=== PATIENT | male | born 1945 | race Caucasian/White ===

== ENCOUNTER 2019-04-02 14:03 | Inpatient (IN) ==
[2019-04-02] MEDS ORDERED: ULTRAM PO PRN (16:00)
[2019-04-02] MEDS: LEVAQUIN 750 MG/D5W 750 MG/150 ML IVPB IV SCH (16:22)
[2019-04-02 16:30] LABS: BASO# 0.04 X1000 (0.0-0.2); BASO% 0.6 % (0.0-0.8); EOS# 0.26 X1000 (0.0-0.7); EOS% 3.9 % (0.0-10.0); HEMATOCRIT 31.9 % (42.0-52.0); HEMOGLOBIN 10.3 g/dL (14.0-18.0); LYMPH# 1.33 X1000 (1.2-3.4); LYMPH% 19.9 % (20.5-51.1); MCH 35.5 PG (27-31); MCHC 32.3 g/dL (33-37); MONO# 0.58 X1000 (0.11-0.59); MONO% 8.7 % (1.7-9.3); MPV 9.6 FL (7.4-10.4); NEUT# 4.48 X1000 (1.4-6.5); NEUT% 66.9 % (42.2-75.2); PLT 118 X1000 (130-400); RDW 14.9 % (11.5-14.5); WBC 6.69 X1000 (4.8-10.8)
[2019-04-02 16:32] LABS: ALLEN TEST YES; BE -1.2 mmoll (-3.0-3.0); BLOOD TYPE ARTERIAL; METHB 0.9 % (0.0-1.5); O2(CT) 14.4 mL/dL (15.0-23.0); O2HB 96.4 % (95.0-99.0); PCO2(98.6) 32 mmHg (35-45); PO2(98.6) 103 mmHg (60-100); SAMPLE BLOOD; SAO2 98.8 % (95.0-100.0); THB 10.5 g/dL (11.5-17.4); pH(98.6) 7.45 (7.35-7.45)
--- NOTE | 2019-04-02 16:32 | EKG Report ---
Test Performed on : 04/02/2019 4:26:16 PM Test Reason : CELLULITIS BOTH LEGS Blood Pressure : / mmHG Vent. Rate : 102 BPM Atrial Rate : 102 BPM P-R Int : 196 ms QRS Dur : 084 ms QT Int : 360 ms P-R-T Axes : 050 062 061 degrees QTc Int : 469 ms Sinus tachycardia. with frequent premature ventricular complexes. Cannot rule out Inferior infarct , age undetermined Abnormal ECG When compared with ECG of 03-SEP-2018 18:56, premature ventricular complexes. are now present ST no longer elevated in Inferior leads ST no longer elevated in Lateral leads Nonspecific T wave abnormality, worse in Inferior leads Confirmed by Rachel DILLARD, Lorenzo Vang ([id number]) on 04/02/2019 7:30:30 PM
[2019-04-02 16:33] LABS: MODALITY ROOM AIR
[2019-04-02 16:34] LABS: INR 1.44; PROTIME 18.7 Seconds (11.0-16.0)
[2019-04-02 16:48] LABS: ALB/GLOB RATIO 1.4; ALBUMIN 3.9 g/dL (3.5-5.0); CALCIUM 9.6 mg/dL (8.8-10.2); POTASSIUM 4.7 mmol/L (3.5-5.1); TOTAL BILIRUBIN 0.62 mg/dL (0.20-1.00); TOTAL PROTEIN 6.6 g/dL (6.3-8.3)
[2019-04-02 16:56] LABS: EOS 2 % (1-10); LYMPHS 17 % (21-51); MONO 4 % (1-9); SEGS 74 % (42-75)
[2019-04-02 17:58] LABS: URINE SOURCE CLEAN CATCH
[2019-04-02 18:07] LABS: BILIRUBIN URINE NEGATIVE (NEGATIVE); BLOOD URINE SMALL (NEGATIVE); COLOR YELLOW; GLUCOSE URINE 200 mg/dL (NEGATIVE); KETONE URINE NEGATIVE (NEGATIVE); LEUKOCYTES URINE NEGATIVE (NEGATIVE); NITRITE URINE NEGATIVE (NEGATIVE); PROTEIN URINE NEGATIVE (NEGATIVE); SP GRAVITY URINE 1.006; TURBIDITY URINE CLEAR (CLEAR); UR EPITHELIAL CELLS <10 /HPF (<10); URINE BACTERIA NEGATIVE /HPF; URINE WBC <10 /HPF (<10); UROBILINOGEN URINE NORMAL (NORMAL)
[2019-04-02] MEDS: ROCEPHIN 1 GM in NS 50 ML IV SCH (18:41)
[2019-04-02] MEDS: LASIX IV SCH (18:41)
--- NOTE | 2019-04-02 18:42 | Diag Imaging Result Doc PS360 ---
EXAM: CHEST-2 VIEWS HISTORY: CELLULITIS BOTH LEGS TECHNIQUE: Chest two views COMPARISON: 09/09/2018 FINDINGS: The lungs are well expanded. The heart is not enlarged. The vessels are not distended. There are no infiltrates. No pleural effusions. IMPRESSION: No pneumonia Electronically signed by Pascual Finney 04/02/2019 6:39 PM
[2019-04-02] MEDS: ALDACTAZIDE 25/25 PO SCH (22:58)
[2019-04-02] MEDS: REQUIP PO SCH (22:58)
[2019-04-02] MEDS: XANAX PO SCH (22:58)
[2019-04-02] MEDS: ELIQUIS PO SCH (22:59)
[2019-04-02] MEDS: REMERON PO SCH (22:59)
[2019-04-02] MEDS: NORCO-7.5 PO SCH (22:59)
[2019-04-03] MEDS: LASIX IV SCH ×2 (05:32→17:48)
[2019-04-03] MEDS: PRILOSEC PO SCH ×2 (05:32→06:29)
[2019-04-03] MEDS: NORCO-7.5 PO SCH ×4 (05:32→23:36)
[2019-04-03] MEDS: ROCEPHIN 1 GM in NS 50 ML IV SCH ×2 (05:32→17:48)
[2019-04-03] MEDS: LEXAPRO PO SCH ×2 (07:57→17:18)
[2019-04-03] MEDS: ZYLOPRIM PO SCH ×2 (07:57→17:18)
[2019-04-03] MEDS: FLOMAX PO SCH ×2 (07:57→17:19)
[2019-04-03] MEDS: ALDACTAZIDE 25/25 PO SCH ×3 (07:58→21:14)
[2019-04-03] MEDS: ELIQUIS PO SCH ×3 (07:58→21:14)
[2019-04-03] MEDS ORDERED: FLOMAX PO PRN (08:12)
[2019-04-03] MEDS ORDERED: ULTRAM PO PRN (08:12)
[2019-04-03] MEDS ORDERED: NON-FORMULARY MED (Omeprazole 40 MG) PO SCH (09:00)
[2019-04-03] MEDS ORDERED: ALDACTONE PO SCH (09:00)
[2019-04-03] MEDS ORDERED: LEXAPRO PO SCH (09:00)
[2019-04-03] MEDS ORDERED: ELIQUIS PO SCH (09:00)
[2019-04-03] MEDS ORDERED: NORCO-7.5 PO SCH (09:00)
[2019-04-03] MEDS ORDERED: ZYLOPRIM PO SCH (09:00)
--- NOTE | 2019-04-03 11:07 | HISTORY AND PHYSICAL ---
HISTORY OF PRESENT ILLNESS: Mr. Merchant is a 73-year-old white gentleman who comes to the office with mild swelling of both legs, more on the left side, with severe cellulitis. He has been having swelling off and on of both legs. It is getting worse, and he had significant cellulitis with infection in both legs, more on the left side. Hence, he was admitted. He has not responded to outpatient therapy. Mr. Merchant has a history of DVT in the left thigh, and since then, he has swelling of the left leg. This happened about 8 years ago. At that time, he had inferior vena cava umbrella filter placed in because he had pulmonary embolism right after the DVT attack. He is a known case of hypertension, maturity-onset diabetes, multiple kidney stones, severe degenerative disk disease, anxiety with depression. For his kidney stones, he usually sees the urologist in [place]. The only surgery he had was surgeries for kidney stones, and inferior vena cava umbrella placed in. REVIEW OF SYSTEMS: Otherwise noncontributory. PHYSICAL EXAMINATION: GENERAL: The patient is alert, oriented. VITAL SIGNS: Temperature normal, pulse 86 per minute, respiratory rate 16 per minute, blood pressure was 120/84. HEENT: Head normocephalic. Pupils PERRLA. Fundus examination not done. ENT examination unremarkable. NECK: Supple. JVP normal. There is no evidence of lymphadenopathy, thyroid enlargement, anemia, cyanosis, or clubbing. EXTREMITIES: He has bilateral leg edema, more on the left side, pitting on pressure, stage IV, and has cellulitis with inflammation of the skin, which is red, hot, tender, more on the left side. Pulses are feeble. BREAST: Normal. CHEST: Normal to inspection. LUNGS: Clear to auscultation. HEART: PMI in the normal position. Heart sounds are normal. No murmur, gallop, or rub noted. ABDOMEN: Nondistended. Hernial orifice is normal. No guarding or rigidity. No masses or organomegaly. There is minimal ascites. RECTAL: Deferred. CENTRAL NERVOUS SYSTEM: Higher functions normal. Cranial nerves normal. Motor and sensory system examination unremarkable. Deep tendon reflexes normal. Plantars downgoing.Skull and spine examination normal for age. No cerebellar signs or signs of meningeal irritation.ocomotor exam. SKIN: Unremarkable, except for the presence of severe cellulitis in both legs, more on the left side. IMPRESSION: Cellulitis, venous stasis edema on both legs, and has history of deep venous thrombosis in the left leg, history of inferior vena caval filter placed in many years ago. He has been on Eliquis for a long time. cc: Khurram Dinh MD MTDD
[2019-04-03] MEDS: CENTRUM SILVER PO SCH (17:15)
[2019-04-03] MEDS: HUMALOG SUBQ SCH ×4 (17:17→22:10)
[2019-04-03] MEDS: VITAMIN D PO SCH (17:18)
[2019-04-03] MEDS: VITAMIN B-12 PO SCH (17:18)
[2019-04-03] MEDS: JANUVIA PO SCH (17:19)
[2019-04-03] MEDS: SYNTHROID PO SCH (17:19)
[2019-04-03] MEDS: LEVAQUIN 750 MG/D5W 750 MG/150 ML IVPB IV SCH (17:48)
[2019-04-03] MEDS ORDERED: XANAX PO SCH (21:00)
[2019-04-03] MEDS ORDERED: REMERON PO SCH (21:00)
[2019-04-03] MEDS ORDERED: NON-FORMULARY MED (Ropinirole Hcl [Requip] 2 MG) PO SCH (21:00)
[2019-04-03] MEDS: REQUIP PO SCH (21:14)
[2019-04-03] MEDS: REMERON PO SCH (21:14)
[2019-04-03] MEDS: XANAX PO SCH (21:15)
[2019-04-04] MEDS: ROCEPHIN 1 GM in NS 50 ML IV SCH ×2 (06:56→17:08)
[2019-04-04] MEDS: NORCO-7.5 PO SCH ×4 (06:57→22:41)
[2019-04-04] MEDS: SYNTHROID PO SCH (06:57)
[2019-04-04] MEDS: PRILOSEC PO SCH (06:57)
[2019-04-04] MEDS: LASIX IV SCH ×2 (06:57→18:08)
[2019-04-04] MEDS: HUMALOG SUBQ SCH ×5 (06:59→22:42)
[2019-04-04 07:27] LABS: CALCIUM 9.2 mg/dL (8.8-10.2); CREATININE 2.2 mg/dL (0.7-1.2); POTASSIUM 3.8 mmol/L (3.5-5.1)
--- NOTE | 2019-04-04 10:07 | PROGRESS NOTE ---
DATE: 04/04/2019 SUBJECTIVE: Mr. Merchant's mild leg edema is better. He has elevated creatinine as well as BUN. He has severe bilateral edema, more on the left side, history of DVT in the left leg. He has an inferior vena cava filter. We have done the venous flow studies several times in the past and now there is no evidence of new DVT he has. At present he has some sepsis. He has history of kidney stones with renal failure. I am going to ask Dr. Valencia to see him. Overall condition is otherwise unchanged. cc: Khurram Dinh MD
[2019-04-04] MEDS: ELIQUIS PO SCH ×2 (10:12→22:40)
[2019-04-04] MEDS: ALDACTAZIDE 25/25 PO SCH ×2 (10:12→22:40)
[2019-04-04] MEDS: VITAMIN B-12 PO SCH (10:12)
[2019-04-04] MEDS: FLOMAX PO SCH (10:12)
[2019-04-04] MEDS: LEXAPRO PO SCH (10:12)
[2019-04-04] MEDS: CENTRUM SILVER PO SCH (10:13)
[2019-04-04] MEDS: VITAMIN D PO SCH (10:13)
[2019-04-04] MEDS: ZYLOPRIM PO SCH (10:13)
[2019-04-04] MEDS: JANUVIA PO SCH (10:13)
[2019-04-04] MEDS: LEVAQUIN 750 MG/D5W 750 MG/150 ML IVPB IV SCH ×2 (14:27→16:15)
--- NOTE | 2019-04-04 19:53 | Diag Imaging Result Doc PS360 ---
EXAM: US RENAL 2 (RETROPER) COMPLETE - 04/04/2019 HISTORY: decreased renal function TECHNIQUE: Bilateral renal ultrasound COMPARISON: None. FINDINGS: The right kidney measures 10.7 x 5.5 x 6.8 cm in size, with cortical thickness of approximately 0.8 cm. The left kidney measures 10.2 x 5.9 x 6.7 cm in size, with cortical thickness of approximately 0.7 cm. There are apparent shadowing stones in the bilateral kidneys. There is no renal mass or hydronephrosis identified. Images of the urinary bladder show no discrete lesion. IMPRESSION: Possible mild bilateral renal cortical thinning. Apparent nonobstructing stones in bilateral kidneys. No hydronephrosis. Electronically signed by Arron Victor 04/04/2019 7:51 PM
--- NOTE | 2019-04-04 21:02 | NEPHROLOGY CONSULTATION ---
DATE: 04/04/2019 REASON FOR CONSULTATION: Gross bilateral edema and renal failure. HISTORY OF PRESENT ILLNESS: Mr. Morrow is a 73-year-old white male who is followed by Dr. Dinh. He has known venous stasis disease in his legs, which are a consequence of DVTs and pulmonary emboli in the past. He has had chronic edema in the legs since that time, worse on the left but also on the right. Given failure of anticoagulation, he had a vena caval filter placed in the past as well. He has never been able to wear compression stockings, stating he could not get them up over his ankles. He was admitted because his swelling was getting worse on a daily basis despite taking increased diuretic doses. His furosemide was increased to 80 mg twice daily and Aldactazide was added without any discernible benefit. His pulmonary symptoms are really minimal. He does have some shortness of breath, but this is not significantly changed. No chest pain. PAST MEDICAL HISTORY: As above. He also has a history of hypothyroidism, BPH and history of nephrolithiasis, and he follows with Dr. Hassan in [place]. HOME MEDICATIONS: Include allopurinol, levothyroxine, tamsulosin, omeprazole, cholecalciferol, furosemide, apixaban, mirtazapine, alprazolam, B12, polyethylene glycol, multivitamin, spironolactone escitalopram, hydrocodone, metformin, ropinirole, sitagliptin, tramadol. ALLERGIES: None. SOCIAL HISTORY: He is . Lives with his . No alcohol or tobacco. REVIEW OF SYSTEMS: Otherwise negative. PHYSICAL EXAMINATION: Vital Signs: Blood pressure 124/68, heart rate 67, respirations 18, afebrile. General: Elderly man, chronically ill, no distress. Skin: Warm and dry. He has venous stasis changes on the lower legs with hyperpigmentation, hypertrophy, erythema. No ulcers. HEENT: Conjunctivae pink and moist. Pupils equal, round, reactive. Oropharynx is clear and moist. Dentition normal. Tongue normal. Neck: Supple. Trachea midline. Jugular venous distention is visible with hepatojugular reflux, minimal. Cardiovascular: PMI not palpable. Regular rate and rhythm with no murmurs, rubs or gallops. Lungs: Have equal excursion, equal breath sounds. No crackles or wheezes. Abdomen: Obese, soft, nontender. Bowel sounds are present. No organomegaly, masses or bruits. Extremities: With 2 to 3+ edema primarily limited below the knee but does extend into the thigh. No clubbing or cyanosis. IMPRESSION: Edema. Primarily related to his increased venous pressure. It has responded very poorly to diuretics. It is not at all surprising that he is experiencing a rise in his BUN and creatinine in the context of diuresis. Honestly, I am not sure how to help him. We will perform renal ultrasound and echocardiogram. He does not have proteinuria. His albumin is normal. Unlikely that kidney disease per se is causing his edema. cc: MD Khurram Mejía MD
[2019-04-04] MEDS: XANAX PO SCH (22:40)
[2019-04-04] MEDS: REMERON PO SCH (22:40)
[2019-04-04] MEDS: REQUIP PO SCH (22:41)
[2019-04-05] MEDS: ROCEPHIN 1 GM in NS 50 ML IV SCH ×2 (06:09→17:44)
[2019-04-05] MEDS: SYNTHROID PO SCH (06:09)
[2019-04-05] MEDS: NORCO-7.5 PO SCH ×4 (06:09→22:07)
[2019-04-05] MEDS: LASIX IV SCH ×2 (06:09→16:59)
[2019-04-05] MEDS: PRILOSEC PO SCH (06:10)
[2019-04-05 06:35] LABS: HEMATOCRIT 31.4 % (42.0-52.0); HEMOGLOBIN 10.1 g/dL (14.0-18.0); MCH 35.9 PG (27-31); MCHC 32.2 g/dL (33-37); MCV 111.7 FL (81-99); MPV 9.3 FL (7.4-10.4); RBC 2.81 XMIL (4.7-6.1); RDW 14.8 % (11.5-14.5); WBC 7.21 X1000 (4.8-10.8)
[2019-04-05 06:58] LABS: POTASSIUM 3.8 mmol/L (3.5-5.1)
[2019-04-05 06:59] LABS: ALBUMIN 3.3 g/dL (3.5-5.0); CREATININE 1.9 mg/dL (0.7-1.2); PHOSPHORUS 3.5 mg/dL (2.7-4.5)
[2019-04-05] MEDS: HUMALOG SUBQ SCH ×4 (08:01→20:14)
[2019-04-05] MEDS: ELIQUIS PO SCH ×2 (08:56→20:14)
[2019-04-05] MEDS: VITAMIN D PO SCH (08:56)
[2019-04-05] MEDS: ZYLOPRIM PO SCH (08:56)
[2019-04-05] MEDS: CENTRUM SILVER PO SCH (08:56)
[2019-04-05] MEDS: LEXAPRO PO SCH (08:56)
[2019-04-05] MEDS: ALDACTAZIDE 25/25 PO SCH ×2 (08:57→20:14)
[2019-04-05] MEDS: FLOMAX PO SCH (08:57)
[2019-04-05] MEDS: JANUVIA PO SCH (08:57)
[2019-04-05] MEDS: VITAMIN B-12 PO SCH (08:57)
[2019-04-05 12:18] LABS: HEMOGLOBIN A1C 8.5 % (4.8-6.0)
[2019-04-05] MEDS: LEVAQUIN 750 MG/D5W 750 MG/150 ML IVPB IV SCH (16:58)
--- NOTE | 2019-04-05 17:36 | NEPHROLOGY PROGRESS NOTE ---
DATE: 04/05/2019 SUBJECTIVE: He is about the same. He is sitting up, using room air. Swelling is unchanged by his report. OBJECTIVE: Vital Signs: Blood pressure 112/52, heart rate 103, respirations 14, afebrile. General: No acute distress. Skin: Warm and dry. Neck: Veins are not visible in the erect position. Heart: Regular. No gallops. Lungs: Equal. No crackles. Abdomen: Soft, nontender. Bowel sounds present. Extremities: 2 to 3+ edema. No changes. No clubbing or cyanosis. IMPRESSION: 1. Acute kidney injury overlying chronic kidney disease. Baseline creatinine is likely around 1.5. Recent rise likely related to diuretic use. 2. Edema. Secondary to venous stasis disease. Certainly he is at risk to have severe pulmonary hypertension as well. An echo is pending. I consulted Dr. Adam to assist with that assessment. I had a discussion with the patient and his regarding the etiology of his swelling and advised that we minimize diuretic use and focus on compression. I will ask the wound care team to apply Unna boots and see if this helps alleviate some of his pain and discomfort. cc: MD Khurram Mejía MD
[2019-04-05] MEDS: XANAX PO SCH (20:13)
[2019-04-05] MEDS: REMERON PO SCH (20:13)
[2019-04-05] MEDS: REQUIP PO SCH (20:14)
--- NOTE | 2019-04-06 03:41 | GENERAL SURGERY CONSULTATION ---
DATE: 04/05/2019 HISTORY OF PRESENT ILLNESS: A 73-year-old gentleman known to me for history of vague GI complaints in the past, possible diverticulosis/itis. He has got a history of extensive DVT's and PE's. He has an IVC filter. He had venous ultrasounds that showed resolution of his DVT back in June 2018. Dr. Wolf admitted him for cellulitis and severe edema of his bilateral lower extremities that has been refractory to medical management. He had Unna boots placed at some point. MEDICAL HISTORY: Dementia, DVT with a history of PE, chronic kidney disease, hypothyroidism, BPH, nephrolithiasis, I believe he does have some degree of heart failure. SURGICAL HISTORY: No vascular procedures other than IVC filter. SOCIAL HISTORY: . No tobacco, alcohol, drugs. REVIEW OF SYSTEMS: Ten point negative. FAMILY HISTORY: Reviewed. PHYSICAL EXAMINATION: Vital signs: No fevers. Pulse 103, blood pressure 123/62, General: He is alert, in no acute distress. HEENT: No scleral icterus. No cervical mass. Cardiovascular: Normal rate, mild sinus tachycardia. Pulmonary: No increased work of breathing. Abdomen: Protuberant but soft, nontender, nondistended. Integument: Warm and dry. Psychiatric: Appropriate affect. Neurologic: Some confusion, but he has no focal deficits. There is generalized slowing. Peripheral vascular: He has got bilateral Unna boots in place with some chronic venous insufficiency changes, more proximally. LABS: White count 7, hematocrit 31. Creatinine is 1.9. Glucose in the 200 to 300s. I reviewed his most recent venous imaging. ASSESSMENT AND PLAN: This is a 73-year-old gentleman with chronic venous insufficiency related to a history of deep venous thrombosis. He has got an IVC filter in place. To ensure that this is not a thrombosed, you could obtain a venous phase CT scan of the abdomen and pelvis, but with his acute on chronic renal insufficiency, we would need to be cautious with this, and it would be reasonable to defer at this point. Otherwise, I agree with Unna wraps therapy. I suspect that he will need some form of ongoing compression going forward. Doubtful that this is infectious based off his labs and history, but most likely this is venous hypertension with inflammation related. He is on antibiotics. We will continue to follow him closely. cc: MD Khurram Craig MD [facility] CENTERDamian
--- NOTE | 2019-04-06 04:40 | PULMONOLOGY CONSULTATION ---
DATE: 04/05/2019 REQUESTING PHYSICIAN: Dr. Jesus Valencia. REASON FOR CONSULTATION: History of pulmonary embolus and increased dyspnea. HISTORY OF PRESENT ILLNESS: Mr. Merchant is a complicated 73-year-old white male with a 30+ pack- year history for tobacco (nonsmoker for 20 years), who was diagnosed with a deep vein thrombosis in his left leg in 2013. The patient was initiated on anticoagulation, but in quick order developed a hemorrhoidal GI bleed and hematuria. The patient's anticoagulation was briefly interrupted and he underwent an IVC filter placement on 07/28/2014. Unfortunately, a V/Q scan 07/21/2014 revealed a pulmonary embolus. He was re-initiated on anticoagulation. 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 He has also had difficulty with iron deficiency anemia and has undergone upper and lower endoscopies performed by Dr. Diann Klein. The patient's last pulmonary imaging study was performed 09/01/2015, which revealed no evidence of pulmonary emboli. He has had additional venous studies of the left lower extremity, which reveals reflux in the deep venous system, but no evidence of acute thrombosis. As mentioned above, patient is a difficult historian. He indicates he is not on blood thinner and when medication prescriptions are reviewed, the last time he had his Eliquis filled was on 01/26/2019. He is not clear why he stopped this medication and he has requested that I discuss that with his tomorrow. The patient does report some increased shortness of breath over the last 4 to 6 weeks, and was admitted to the hospital with increase in lower extremity edema, which he reports has fluctuated since his initial deep vein thrombosis. PAST MEDICAL HISTORY: 1. Extensive tobacco history. COPD is suspected. 2. Episode of cirrhosis with ascites in May 2018, 3. Status post IVC filter placement as per above. He may have had recent discontinuation of his anticoagulation as per above. 4. Diverticulosis. 5. Hemorrhoids (internal and external). 6. Recurrent nephrolithiasis. 7. Status post cholecystectomy. 8. Hypogonadism. 9. Hypothyroidism. 10. Anxiety/depressive disorder. 11. History of hypertension. 12. Status post back surgery. 13. Status post hemorrhoid surgery. 14. Status post umbilical surgery. 15. Chronic renal insufficiency. SOCIAL HISTORY: Prior tobacco use but none for greater than 20 years. Prior alcohol use. FAMILY HISTORY: Noncontributory. REVIEW OF SYSTEMS: Notable for fluctuating lower extremity edema, subjective increase in shortness of breath, fatigue. PHYSICAL EXAMINATION: General: Reveals an obese white male resting comfortably, in no distress. Vital signs: Blood pressure 122/57, heart rate 104, respiratory rate 16, oxygen saturation 96% on room air. HEENT: Pupils are equal and reactive. Oropharynx is clear. Neck: Supple. Chest: Reveals prolonged expiratory phase. Cardiac: S1, S2. Abdomen: Obese and soft. Extremities: Reveal edema, left greater than right, with erythema, left greater than right. IMPRESSION: A 73-year-old with 1. Dyspnea, which has subjectively increased over the last 4 to 6 weeks. 2. History of prior pulmonary emboli status post IVC filter placement. 3. History of hematuria and gastrointestinal bleeding. 4. 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 5. Possible recent discontinuation of Eliquis, as outlined above. RECOMMENDATIONS: 1. 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 2. Agree with plans for echocardiogram to evaluate right heart pressures. 3. Planned V/Q scan on Monday morning. 4. Agree with antibiotics per Dr. Dinh. 5. We will check a D-dimer, although it may be of limited benefit with an active infectious process. 6. Routine trial of bronchodilators to see if this diminishes his dyspnea. cc: MD Khurram Dewitt MD MTDD
[2019-04-06] MEDS: LASIX IV SCH (05:08)
[2019-04-06] MEDS: NORCO-7.5 PO SCH ×4 (05:08→22:26)
[2019-04-06] MEDS: ROCEPHIN 1 GM in NS 50 ML IV SCH ×2 (05:08→18:00)
[2019-04-06] MEDS: PRILOSEC PO SCH ×2 (05:09→06:24)
[2019-04-06] MEDS: SYNTHROID PO SCH ×2 (05:16→15:53)
[2019-04-06 06:38] LABS: HEMATOCRIT 30.3 % (42.0-52.0); HEMOGLOBIN 9.9 g/dL (14.0-18.0); MCH 36.1 PG (27-31); MCHC 32.7 g/dL (33-37); MCV 110.6 FL (81-99); MPV 9.3 FL (7.4-10.4); RBC 2.74 XMIL (4.7-6.1); RDW 14.7 % (11.5-14.5); WBC 7.53 X1000 (4.8-10.8)
[2019-04-06 06:49] LABS: ALBUMIN 3.5 g/dL (3.5-5.0); CALCIUM 9.2 mg/dL (8.8-10.2); PHOSPHORUS 3.6 mg/dL (2.7-4.5); POTASSIUM 3.9 mmol/L (3.5-5.1)
[2019-04-06] MEDS: HUMALOG SUBQ SCH ×4 (06:50→22:26)
[2019-04-06] MEDS: DUONEB (A & A) INH SCH ×3 (08:53→21:35)
--- NOTE | 2019-04-06 09:16 | ECHO REPORT ---
ORDER DATE: 04/04/2019 INTERPRETING PHYSICIAN: Dr. Castillo REQUESTING PHYSICIAN: CLINICAL INDICATIONS: This is a 73-year-old male with hypertension, renal insufficiency. M-MODE MEASUREMENTS: Right ventricle: cm. Left ventricle end diastole: 4.3 cm. Left ventricle end systole: 2.9 cm. Posterior wall: 1.1 cm. Interventricular septum: 1.1 cm. Left atrium: 3.6 cm. Aortic root: 3.6 cm. SUMMARY OF 2-DIMENSIONAL IMAGIN. The left ventricular systolic function appears to be roughly within normal limits. In some of the views, there is a suggestion of a very subtle degree of global apical hypokinesis. It is not seen in all the views. It could be just artifactual due to awkward angulation of the echocardiographic sector. At any rate, the patient seems to have irregular cardiac cycles. (PVC's?). The ejection fraction, as I said, is probably in the order of 60%. 2. Aortic valve is normal. Color flow mapping is unremarkable. 3. Mitral annulus shows some calcification. Color flow mapping of mitral valve is unremarkable. 4. Pulse wave Doppler of mitral inflow shows a variable E/A ratio. The patient seems to have some sort of frequent PACs. 5. The tissue Doppler of septal and lateral mitral annulus averages 10 cm. 6. Diastolic function is probably normal. 7. There is a prominent epicardial fat pad. 8. Aortic valve is unremarkable. 9. Pulmonic valve is unremarkable. 10.Tricuspid valve shows no significant regurgitation. 11.Pulmonary pressure is estimated at 31 to 36 mmHg. 12.There is no pericardial effusion, mass or thrombus. CONCLUSIONS: In summary, this study shows: 1. Technically difficult study. The patient seems to have irregular cardiac cycles or frequent PVCs in between. 2. Ejection fraction is 60%. 3. Probably normal diastolic function. 4. Pulmonary pressure is 31 mmHg. 5. Moderately enlarged atria. Clinical correlation is recommended. cc: MD Jesus Ibrahim MD Amit V. Vora, MD MTDD
[2019-04-06] MEDS: VITAMIN B-12 PO SCH (10:06)
[2019-04-06] MEDS: VITAMIN D PO SCH (10:06)
[2019-04-06] MEDS: LEXAPRO PO SCH (10:06)
[2019-04-06] MEDS: CENTRUM SILVER PO SCH (10:06)
[2019-04-06] MEDS: ELIQUIS PO SCH ×2 (10:07→22:26)
[2019-04-06] MEDS: JANUVIA PO SCH (10:07)
[2019-04-06] MEDS: ZYLOPRIM PO SCH (10:07)
[2019-04-06] MEDS: ALDACTAZIDE 25/25 PO SCH ×2 (10:07→22:25)
[2019-04-06] MEDS: FLOMAX PO SCH (10:07)
--- NOTE | 2019-04-06 14:16 | PROGRESS NOTE ---
DATE: 04/06/2019 OBJECTIVE: Mr. Morrow is somewhat anemic. Hemoglobin is 9.9. Blood sugar has come down to 223. Lungs clear. He is getting local treatment on his legs for edema by Dr. Miner. He has an infected sebaceous cyst on the back his neck. He is also being checked Dr. Valencia and Dr. Adam. ASSESSMENT: Overall condition is unchanged. The diuretics are helping him some. -5 cc: Khurram Dinh MD MTDD
[2019-04-06] MEDS: LEVAQUIN 750 MG/D5W 750 MG/150 ML IVPB IV SCH (16:23)
--- NOTE | 2019-04-06 18:22 | PULMONOLOGY PROGRESS NOTE ---
DATE: 04/06/2019 SUBJECTIVE: The patient is awake, alert and conversant. He reports he feels a little bit better. He denies change in lower extremity edema. OBJECTIVE: The patient is awake, alert, and conversant. The patient has been afebrile for the last 24 hours. Heart rate 103, blood pressure 113/54, respiratory rate 12, oxygen saturation 96% on room air. HEENT: Pupils are equal and reactive. Oropharynx is clear. Neck is supple. Chest reveals prolonged expiratory phase. Cardiac exam: S1, S2. Abdomen is obese and soft. Extremities reveal edema, left greater than right lower extremity. DIAGNOSTIC DATA: Echocardiogram reveals normal LV function. No significant pulmonary hypertension, with an estimated PA pressure of 31 to 36. D-dimer is only marginally elevated at 0.61. IMPRESSION: A 73-year-old with: 1. Chronic obstructive pulmonary disease. 2. Pulmonary emboli, status post inferior vena cava filter placement. 3. Remote history of hematuria and gastrointestinal bleeding. 4. Postphlebitic syndrome as above with chronic lower extremity edema. DISCUSSION: A 73-year-old with problems outlined above. Echocardiogram is encouraging, without evidence of pulmonary hypertension. D-dimer is only minimally elevated. I doubt that he is having ongoing pulmonary emboli or chronic thromboembolic syndrome, given the current echocardiographic findings. I will complete the workup with a VQ scan on Monday. PLAN: 1. Continue lifelong anticoagulation. 2. Plan VQ scan on Monday morning. 3. Antibiotics per Dr. Dinh. 4. Continue compression stockings for the lower extremities. cc: MD Khurram Dewitt MD
--- NOTE | 2019-04-06 18:48 | GENERAL SURGERY PROGRESS NOTE ---
DATE: 04/06/2019 SUBJECTIVE: Doing well. Legs feel better with Unna wraps. No fevers. Low-grade tachycardia. OBJECTIVE: Vital Signs: Blood pressure 130/54. General: He is alert. Unna wraps are in place. Abdomen: Soft. Integument: Warm, dry. LABS: White count 7, hematocrit 30. ASSESSMENT/PLAN: This is a 73-year-old gentleman admitted with respiratory symptoms and bilateral lower extremity edema. I suspect this is multifactorial, including venous hypertension related to insufficiency from postphlebitic syndrome. Will continue Unna wraps and plans to place JuxtaLites as an outpatient. cc: MD Khurram Craig MD
--- NOTE | 2019-04-06 19:11 | NEPHROLOGY PROGRESS NOTE ---
DATE: 04/06/2019 SUBJECTIVE: Mr. Merchant is resting comfortably in bed. He has Unna boots on his legs. He cannot appreciate any significant change in his symptoms. Shortness of breath is minimal. OBJECTIVE: Vital Signs: Blood pressure 99/50, heart rate 102, respirations 20, afebrile. Generally: No acute distress. Skin: Warm and dry. Eyes: Conjunctivae are pink. Neck: Neck veins are not distended. Heart: Regular. Lungs: Equal. Abdomen: Obese, soft, nontender. Extremities: Have 2+ edema. No change. IMPRESSION: Chronic kidney disease with prerenal state. Labs are roughly stable since admission. BUN to creatinine ratio is 15. He continues to receive furosemide 40 mg IV q.12 hours. I will change that to an oral dose today. No other changes in his medication. cc: MD Khurram Mejía MD
[2019-04-06] MEDS: REQUIP PO SCH (22:25)
[2019-04-06] MEDS: LASIX PO SCH (22:25)
[2019-04-06] MEDS: REMERON PO SCH (22:25)
[2019-04-06] MEDS: XANAX PO SCH (22:26)
[2019-04-07 06:31] LABS: ALBUMIN 3.3 g/dL (3.5-5.0); CALCIUM 9.1 mg/dL (8.8-10.2); PHOSPHORUS 3.8 mg/dL (2.7-4.5); POTASSIUM 3.6 mmol/L (3.5-5.1)
[2019-04-07 06:38] LABS: HEMOGLOBIN 9.6 g/dL (14.0-18.0); MCH 36.5 PG (27-31); MCHC 33.1 g/dL (33-37); MCV 110.3 FL (81-99); MPV 9.5 FL (7.4-10.4); RBC 2.63 XMIL (4.7-6.1); RDW 14.7 % (11.5-14.5); WBC 6.84 X1000 (4.8-10.8)
[2019-04-07] MEDS: HUMALOG SUBQ SCH ×4 (06:52→21:48)
[2019-04-07] MEDS: ROCEPHIN 1 GM in NS 50 ML IV SCH ×3 (06:52→18:53)
[2019-04-07] MEDS: NORCO-7.5 PO SCH ×4 (06:53→21:45)
[2019-04-07] MEDS: PRILOSEC PO SCH (06:53)
[2019-04-07] MEDS: SYNTHROID PO SCH (06:53)
[2019-04-07] MEDS: DUONEB (A & A) INH SCH ×3 (08:48→21:15)
[2019-04-07] MEDS: LEXAPRO PO SCH (09:42)
[2019-04-07] MEDS: JANUVIA PO SCH (09:43)
[2019-04-07] MEDS: FLOMAX PO SCH (09:43)
[2019-04-07] MEDS: VITAMIN B-12 PO SCH (09:43)
[2019-04-07] MEDS: VITAMIN D PO SCH (09:43)
[2019-04-07] MEDS: ALDACTAZIDE 25/25 PO SCH ×2 (09:43→21:45)
[2019-04-07] MEDS: LASIX PO SCH ×2 (09:43→21:45)
[2019-04-07] MEDS: CENTRUM SILVER PO SCH (09:43)
[2019-04-07] MEDS: ELIQUIS PO SCH ×2 (09:43→21:45)
[2019-04-07] MEDS: ZYLOPRIM PO SCH (09:43)
--- NOTE | 2019-04-07 12:00 | PROGRESS NOTE ---
DATE: 04/07/2019 Mr. Merchant is alert, oriented. He feels somewhat better. His lungs are clear. Heart sounds are normal. Blood sugar is around 250. Sodium 128. Hemoglobin was 9.6. Vital signs are stable. He has Unna boots on. We will try to check his weight today so that we can compare the weight loss. -7 cc: Khurram Dinh MD
--- NOTE | 2019-04-07 13:53 | GENERAL SURGERY PROGRESS NOTE ---
DATE: 04/07/2019 SUBJECTIVE: Legs feel okay. No fevers. There is low-grade tachycardia. OBJECTIVE: Blood pressure 119/65. General: He is alert. He is saturating 95% on room air with no increased work of breathing. Bilateral Unna boots are in place. Labs reviewed. White count remains normal at 6. Creatinine is 2.0, glucose in the 200s. ASSESSMENT/PLAN: A 73-year-old gentleman with bilateral lower extremity edema. We will continue Unna wraps. Plan on changing those tomorrow. We will plan on continuing this for the next couple of weeks. cc: MD Khurram Craig MD
--- NOTE | 2019-04-07 14:19 | PULMONOLOGY PROGRESS NOTE ---
DATE: 04/07/2019 SUBJECTIVE: The patient is awake, alert and conversant. His anticoagulation was discussed with his . She reports he has not been off Eliquis as suggested by pharmacy review. She does report he has shortness of breath with exertion. She reports he did undergo home physical therapy and continued to exercise for a time after this was discontinued, but has no routine exercise regimen now. He continues to have dyspnea when he exerts himself at home. He has been initiated on a trial of nebulizer medications with possible marginal improvement. OBJECTIVE: Vital Signs: The patient has been afebrile for the last 24 hours. Blood pressure 118/65, heart rate 100, respiratory rate 18. Oxygen saturation 95% on room air. HEENT: Pupils are equal and reactive. Oropharynx appears clear. Neck: Supple. Chest: Reveals mild prolonged expiratory phase. Cardiac: S1, S2. Abdomen: Obese and soft. Extremities: Reveal chronic edema with Unna boots in place. LABORATORIES: White blood count 6.84, hemoglobin 9.6, platelet count 119,000. Sodium 128, potassium 3.6, chloride 90, bicarbonate 23, BUN 30, creatinine 2.0. IMPRESSION: A 73-year-old with: 1. COPD. 2. 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 3. History of hematuria and GI bleeding. 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 5. Dyspnea on exertion with a significant component of deconditioning. 6. Obesity. RECOMMENDATIONS: 1. Continue lifelong anticoagulation. 2. We will complete V/Q scan tomorrow. Possibility of embolus seems low given a very marginal D- dimer and an echocardiogram which reveals no pulmonary hypertension. 3. Antibiotics per Dr. Dinh for lower extremity cellulitis. 4. Continue Unna boots. 5. Long-term, patient would benefit from resuming a daily exercise program and losing 45 to 50 pounds. cc: MD Khurram Dewitt MD
[2019-04-07] MEDS: LEVAQUIN 750 MG/D5W 750 MG/150 ML IVPB IV SCH (16:36)
[2019-04-07] MEDS: REQUIP PO SCH (21:45)
[2019-04-07] MEDS: REMERON PO SCH (21:45)
[2019-04-07] MEDS: XANAX PO SCH (21:45)
[2019-04-08] MEDS: NORCO-7.5 PO SCH ×5 (03:21→21:54)
[2019-04-08 06:42] LABS: HEMATOCRIT 28.8 % (42.0-52.0); HEMOGLOBIN 9.5 g/dL (14.0-18.0); MCH 36.3 PG (27-31); MCV 109.9 FL (81-99); MPV 8.9 FL (7.4-10.4); RBC 2.62 XMIL (4.7-6.1); RDW 14.7 % (11.5-14.5); WBC 6.59 X1000 (4.8-10.8)
[2019-04-08] MEDS: ROCEPHIN 1 GM in NS 50 ML IV SCH ×2 (06:58→17:22)
[2019-04-08] MEDS: PRILOSEC PO SCH (06:59)
[2019-04-08] MEDS: HUMALOG SUBQ SCH ×4 (06:59→21:54)
[2019-04-08] MEDS: SYNTHROID PO SCH (06:59)
[2019-04-08 07:14] LABS: ALBUMIN 3.4 g/dL (3.5-5.0); CALCIUM 9.5 mg/dL (8.8-10.2); CREATININE 2.1 mg/dL (0.7-1.2); PHOSPHORUS 3.7 mg/dL (2.7-4.5); POTASSIUM 4.6 mmol/L (3.5-5.1)
--- NOTE | 2019-04-08 07:27 | Diag Imaging Result Doc PS360 ---
EXAM: CHEST-2 VIEWS INDICATION: VQ SCAN TECHNIQUE: 2 views COMPARISON: 04/02/2019 FINDINGS: There is stable elevation of the right hemidiaphragm. The lungs are grossly clear. There is no discrete pleural fluid collection or pneumothorax. The cardiomediastinal silhouette and central vasculature are grossly unremarkable. IMPRESSION: No evidence of acute pathology by plain radiograph. Electronically signed by Avel Acevedo 04/08/2019 7:25 AM
--- NOTE | 2019-04-08 09:38 | NEPHROLOGY PROGRESS NOTE ---
DATE: 04/08/2019 TIME SEEN: 0650. SUBJECTIVE: Mr. Morrow is lying in bed. States that he is feeling better. He is mostly supine. Denies increased work of breathing. IMAGING AND LABORATORY DATA: His sodium is 129, potassium 4.6, chloride is 89, CO2 is 25, BUN 30, creatinine 2.1, glucose 154, his anion gap is 15, his calcium is 9.5, phosphorus 3.7, albumin is 3.4. His white count is 6.59, hemoglobin 9.5, hematocrit 28.8, with a platelet count of 104,000. Chest x-ray done this a.m. shows no acute disease. Negative for pulmonary edema, pneumothorax, or pneumonia. OBJECTIVE: Vital Signs: Temperature 98.4 degrees, blood pressure 126/55, heart rate 102, respirations 18. He is on room air. Last recorded saturation 92%. He has had 1500 in. They have recorded 400 mL out to void. HEENT: Normocephalic, atraumatic. Conjunctivae pale. He has RENO. Mucous membranes are dry. Neck: Supple. Trachea midline. He does have positive JVD at approximately 8 cm. Cardiovascular: He is regular rate and rhythm. He is without gallop. Lungs: Clear to auscultation anteriorly. Equal excursion on room air. Abdomen: Soft, large, round, nontender. Positive bowel sounds auscultated. Genitourinary: Not inspected. The patient has been voiding adequate amount. Extremities: He has Unna boots up to the knees. Otherwise, he has 2+ lower extremity edema in his thigh area. ASSESSMENT AND PLAN: 1. Fluid volume overload. He continues on Lasix 40 mg b.i.d. He also continues on Aldactazide 25/25, which may be contributing to his hyponatremia. We will monitor. If this continues to drop, this may need to be changed. 2. Acid-base balance. This remains acceptable. 3. Anemia. This is low, but stable with no indications for intervention. 4. Bilateral leg cellulitis. The patient does remain on diuretic therapy. Unna boots remain in place. We will plan for followup in our office after discharge in 2 to 3 weeks. No indications for intervention at this time. I would like to thank you for allowing us to follow with this patient. Dictated by IRON Farias for Jesus Valencia MD Face to face encounter, data reviewed, discussed with Greg Fonseca on 04/08/19. I agree with the above assessment and plan of care. cc: IRON Farias MD Amit V. Vora, MD [facility]WORK[facility]
--- NOTE | 2019-04-08 09:39 | Diag Imaging Result Doc PS360 ---
EXAM: LUNG SCAN / VQ INDICATION: h/o of PTE TECHNIQUE: 42 mCi of aerosolized technetium 99 DTPA was administered for the ventilation portion of the scan. 6.2 mCi of IV technetium 99 MAA was administered for the perfusion portion of the scan. COMPARISON: 08/21/2014 FINDINGS: No matched or unmatched perfusion defects are appreciated. There is some condensed radiotracer in the trachea and right mainstem bronchus. The ventilation portion of the scan is unremarkable, otherwise. IMPRESSION: Negative VQ scan. Electronically signed by Avel Acevedo 04/08/2019 9:37 AM
[2019-04-08] MEDS: ELIQUIS PO SCH ×2 (09:44→21:54)
[2019-04-08] MEDS: VITAMIN D PO SCH (09:44)
[2019-04-08] MEDS: FLOMAX PO SCH (09:44)
[2019-04-08] MEDS: LEXAPRO PO SCH (09:44)
[2019-04-08] MEDS: CENTRUM SILVER PO SCH (09:44)
[2019-04-08] MEDS: VITAMIN B-12 PO SCH (09:44)
[2019-04-08] MEDS: LASIX PO SCH ×2 (09:44→21:54)
[2019-04-08] MEDS: JANUVIA PO SCH (09:44)
[2019-04-08] MEDS: ALDACTAZIDE 25/25 PO SCH ×2 (09:45→21:54)
[2019-04-08] MEDS: ZYLOPRIM PO SCH (09:45)
[2019-04-08] MEDS: DUONEB (A & A) INH SCH ×3 (11:10→19:59)
--- NOTE | 2019-04-08 11:19 | PROGRESS NOTE ---
DATE: 04/08/2019 The patient is doing about the same. CBC is unremarkable except for anemia. Hemoglobin is 9.5, hematocrit 28.8. Blood sugar is 167. Chest x-ray was unremarkable. He probably had a PFT done. His echocardiogram somewhat was technically difficult. The EF was 60%. Normal diastolic function. Pulmonary pressure is 31, and was moderately enlarged at atriumnoted. We are going to continue to watch him closely. He has Unna boots at the present time, and the legs look much better. -2 cc: Khurram Dinh MD MTDD
[2019-04-08] MEDS: LEVAQUIN 750 MG/D5W 750 MG/150 ML IVPB IV SCH (15:53)
--- NOTE | 2019-04-08 21:09 | PULMONOLOGY PROGRESS NOTE ---
DATE: 04/08/2019 SUBJECTIVE: Patient is awake, alert. He is without specific complaints. OBJECTIVE: Vital Signs: Blood pressure 138/73, heart rate 100, respiratory rate 18, oxygen saturation 97% on room air. HEENT: Pupils are equal and reactive. Oropharynx appears clear. Neck: Supple. Chest: Good air entry bilaterally. Cardiac: S1, S2. Abdomen: Soft. Extremities: Without change. He has Unna boots bilaterally. LABORATORIES: Chest x-ray reveals elevation of the right hemidiaphragm, but no evidence of acute disease. V/Q scan is normal. IMPRESSION: A 73-year-old with: 1. Chronic obstructive pulmonary disease. 2. Pulmonary emboli, status post inferior vena cava placement. 3. Borderline D-dimer level, but no evidence of deep vein thrombosis and no evidence of chronic thromboembolic disease. 4. Dyspnea on exertion with deconditioning. 5. Obesity. 6. 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 RECOMMENDATIONS: 1. Continue lifelong anticoagulation. 2. Continue Unna boots. Patient will likely require lifelong compression stockings. 3. Continue antibiotics for cellulitis, per Dr. Dinh. 4. Encourage patient to begin an exercise and weight loss program. 5. No new recommendations from a pulmonary medicine standpoint. Please call with questions. cc: MD Khurram Dewitt MD
[2019-04-08] MEDS: REQUIP PO SCH (21:53)
[2019-04-08] MEDS: REMERON PO SCH (21:54)
[2019-04-08] MEDS: XANAX PO SCH (21:54)
[2019-04-09] MEDS: NORCO-7.5 PO SCH ×6 (00:24→23:12)
[2019-04-09 06:53] LABS: HEMATOCRIT 28.7 % (42.0-52.0); HEMOGLOBIN 9.6 g/dL (14.0-18.0); MCH 35.6 PG (27-31); MCHC 33.4 g/dL (33-37); MCV 106.3 FL (81-99); MPV 9.6 FL (7.4-10.4); RBC 2.7 XMIL (4.7-6.1); RDW 14.2 % (11.5-14.5); WBC 6.83 X1000 (4.8-10.8)
[2019-04-09 07:03] LABS: ALBUMIN 3.4 g/dL (3.5-5.0); CALCIUM 9.6 mg/dL (8.8-10.2); CREATININE 2.1 mg/dL (0.7-1.2); PHOSPHORUS 3.6 mg/dL (2.7-4.5); POTASSIUM 3.8 mmol/L (3.5-5.1)
[2019-04-09] MEDS: HUMALOG SUBQ SCH ×4 (07:47→21:21)
[2019-04-09] MEDS: ROCEPHIN 1 GM in NS 50 ML IV SCH ×2 (07:48→19:36)
[2019-04-09] MEDS: PRILOSEC PO SCH (07:50)
[2019-04-09] MEDS: SYNTHROID PO SCH (07:50)
[2019-04-09] MEDS: DUONEB (A & A) INH SCH ×3 (08:00→20:20)
[2019-04-09] MEDS ORDERED: ALDACTAZIDE 25/25 PO SCH (09:00)
--- NOTE | 2019-04-09 09:00 | NEPHROLOGY PROGRESS NOTE ---
DATE: 04/09/2019 DATE AND TIME SEEN: 04/09/2019 at 0715. SUBJECTIVE: Mr. Merchant is resting quietly. He is sitting up in a chair. His legs are dependent. States that he thinks that he is feeling better. OBJECTIVE: VITAL SIGNS: Temperature 98 degrees, blood pressure 124/61, heart rate 75, respirations 12. He is on room air, last recorded saturation 97%. He has had 880 in, he has had 900 out to void. LABORATORY DATA: Sodium 126, potassium 3.8, chloride 88, CO2 24, BUN 29, creatinine 2.1, glucose is 157. His anion gap is 14, calcium is 9.6, phosphorus 3.6, albumin is 3.4. White count 6.83, hemoglobin 9.6, hematocrit 28.7 with a platelet count of 115,000. PHYSICAL EXAMINATION: General: This is a 73-year-old white male. He is resting quietly in a chair. He has no acute distress. Skin: Warm and dry. HEENT: Normocephalic, atraumatic. Conjunctivae pale. He has RENO. Mucous membranes are dry. Neck: Supple. Trachea midline. He continues with positive JVD. Cardiovascular: He is regular rate and rhythm. He is without gallop. Lungs: Clear to auscultation bilaterally. Equal excursion on room air. Abdomen: Distended, soft, nontender. Positive bowel sounds. Genitourinary: Not inspected. The patient has documented adequate urine out. Extremities: Have Unna boots in place though he does have 2+ edema up into the mid thigh/hip region. Neurological: Alert and oriented x3. ASSESSMENT AND PLAN: 1. Fluid volume overload. The patient remains on Lasix 40 mg. He does continue on Aldactazide 25-25 b.i.d. Due to his hyponatremic state, we will decrease this to once daily. If this is not improving, he may need to have his hydrochlorothiazide removed from his Aldactone combination medication. His BUN and creatinine remain stable. 2. Acid-base balance. This is acceptable. 3. Anemia. This is low but stable. 4. Bilateral leg cellulitis. He remains on his Unna boots. We have discussed his fluid volume overload and swelling. The patient is eating a bag of [employer] potato chips. We have talked to him in regards with a low-salt diet. We will restrict him to a 2 g sodium. We will restrict his fluids to 1.5 L. We will get dietitian to come in and speak with the family in regards with these restrictions and how best to assist the patient to continue to have vascular therapy, and we will follow the patient up in our office if discharged within 2 to 3 weeks after discharge. I would to thank you for allowing us to follow with this patient. Dictated by IRON Farias for Jesus Valencia MD Face to face encounter, data reviewed, discussed with Greg Fonseca on 04/09/19. I agree with the above assessment and plan of care. cc: IRON Farias MD Amit V. Vora, MD MTDD
--- NOTE | 2019-04-09 09:31 | PROGRESS NOTE ---
DATE: 04/09/2019 SUBJECTIVE: Mr. Merchant is in about the same general condition. He is anemic. Hemoglobin is 9.6, hematocrit 28.7 with normal white count, and platelet count is 115. Electrolytes reveal hyponatremia. Sodium 126, BUN is 29, and creatinine 2.1, it is probably diuretic effect. Cultures have been negative so far. He has Unna boots and gets IV antibiotics, as well as diuretics. V/Q scan is negative for pulmonary embolism and his echocardiographic exam revealed that his ejection fraction was around 60%. His pulmonary pressure was 31 mmHg. He has moderately enlarged atria. -2 cc: Khurram Dinh MD
[2019-04-09] MEDS: FLOMAX PO SCH (09:33)
[2019-04-09] MEDS: VITAMIN D PO SCH (09:33)
[2019-04-09] MEDS: LEXAPRO PO SCH (09:33)
[2019-04-09] MEDS: ZYLOPRIM PO SCH (09:33)
[2019-04-09] MEDS: ELIQUIS PO SCH ×2 (09:33→21:21)
[2019-04-09] MEDS: JANUVIA PO SCH (09:33)
[2019-04-09] MEDS: CENTRUM SILVER PO SCH (09:33)
[2019-04-09] MEDS: VITAMIN B-12 PO SCH (09:33)
[2019-04-09] MEDS: LASIX PO SCH ×2 (09:33→21:21)
[2019-04-09] MEDS: LEVAQUIN 750 MG/D5W 750 MG/150 ML IVPB IV SCH (17:51)
[2019-04-09] MEDS: XANAX PO SCH (21:21)
[2019-04-09] MEDS: REQUIP PO SCH (21:21)
[2019-04-09] MEDS: REMERON PO SCH (21:21)
[2019-04-10] MEDS: ROCEPHIN 1 GM in NS 50 ML IV SCH ×2 (05:05→17:36)
[2019-04-10] MEDS: PRILOSEC PO SCH ×2 (05:06→06:20)
[2019-04-10] MEDS: SYNTHROID PO SCH ×2 (05:06→06:20)
[2019-04-10] MEDS: NORCO-7.5 PO SCH ×4 (05:06→20:21)
[2019-04-10] MEDS: HUMALOG SUBQ SCH ×4 (07:40→20:22)
[2019-04-10] MEDS: DUONEB (A & A) INH SCH ×3 (08:28→21:40)
[2019-04-10 09:07] LABS: ALBUMIN 3.3 g/dL (3.5-5.0); CALCIUM 9.6 mg/dL (8.8-10.2); CREATININE 1.8 mg/dL (0.7-1.2); PHOSPHORUS 3.6 mg/dL (2.7-4.5); POTASSIUM 3.9 mmol/L (3.5-5.1)
--- NOTE | 2019-04-10 09:13 | NEPHROLOGY PROGRESS NOTE ---
DATE: 04/10/2019 DATE AND TIME SEEN: 04/10/2019 at 0710. SUBJECTIVE: Mr. Merchant is resting quietly in bed. He is almost supine. He denies any increased work of breathing. No chest pain. OBJECTIVE: MOST RECENT VITAL SIGNS: Temperature 98.1 degrees, blood pressure 131/75, heart rate 101, respirations 16. He is on room air, last recorded saturation 95%. He has had 1220 in. They have only recorded 3 mL out though patient states he has been voiding several times yesterday large amounts to urinal. LABORATORY DATA: These are currently pending. Previous potassium of 3.8, BUN of 29, creatinine 2.1 which is at his baseline, with a hemoglobin of 9.6 on the . PHYSICAL EXAMINATION: General: This is a 73-year-old white male, resting quietly in bed. He appears chronically ill, in no acute distress. Skin is warm and dry. HEENT: Normocephalic, atraumatic. Conjunctivae pale. He has RENO. Mucous membranes are dry. Neck: Supple. Trachea midline. He does continue to have trace JVD. Cardiovascular: Regular rate and rhythm. He is without a gallop. Lungs: Clear to auscultation bilaterally. Equal excursion on room air. Abdomen: Distended, large, round, nontender. Positive bowel sounds. Genitourinary: Not inspected. Patient has been voiding adequate amount, though this has not been recorded. Extremities: Continues with Unna boots to the bilateral lower extremities. He does have 2+ edema up into the mid thigh/hip region. Neurological: Alert and oriented x3. ASSESSMENT AND PLAN: 1. Chronic kidney disease stage 4. The patient is at his historical baseline creatinine of 2.1. 2. Fluid volume overload. Patient has been on Lasix and Aldactazide. Due to patient's hyponatremic state, we will stop his Aldactazide today. Labs are still currently pending. 3. Acid-base balance. This is acceptable. 4. Anemia, low but stable. 5. Bilateral cellulitis with venous stasis. The patient remains on Unna boots. He has been instructed that we will attempt to have services for this upon discharge to complete and monitor at home. Follow up in our office in 2 to 3 weeks as indicated. I would like to thank you for allowing us to follow with this patient. Dictated by IRON Farias for Jesus Valencia MD Face to face encounter, data reviewed, discussed with Greg Fonseca on 04/10/19. I agree with the above assessment and plan of care. cc: IRON Farias MD Amit V. Vora, MD [facility]
--- NOTE | 2019-04-10 10:14 | PROGRESS NOTE ---
DATE: 04/10/2019 SUBJECTIVE: Mr. Merchant is complaining about generalized weakness. His sodium is still 125. He has some edema on both legs, which is significantly better. He has Unna boots on. Diabetes is improving with the last blood sugar 174. We are going to continue the antibiotics. We will start physical therapy on him so that he can at least walk a few steps at home. -1 cc: Khurram Dinh MD
[2019-04-10] MEDS: LASIX PO SCH ×2 (10:16→20:22)
[2019-04-10] MEDS: ZYLOPRIM PO SCH (10:16)
[2019-04-10] MEDS: LEXAPRO PO SCH (10:16)
[2019-04-10] MEDS: ELIQUIS PO SCH ×2 (10:16→20:22)
[2019-04-10] MEDS: FLOMAX PO SCH (10:16)
[2019-04-10] MEDS: JANUVIA PO SCH (10:16)
[2019-04-10] MEDS: VITAMIN D PO SCH (10:16)
[2019-04-10] MEDS: CENTRUM SILVER PO SCH (10:16)
[2019-04-10] MEDS: VITAMIN B-12 PO SCH (10:17)
[2019-04-10] MEDS: LEVAQUIN 750 MG/D5W 750 MG/150 ML IVPB IV SCH (17:37)
[2019-04-10] MEDS: REQUIP PO SCH (20:21)
[2019-04-10] MEDS: XANAX PO SCH (20:22)
[2019-04-11] MEDS: REMERON PO SCH ×2 (03:10→22:46)
[2019-04-11] MEDS: NORCO-7.5 PO SCH ×5 (03:10→22:46)
[2019-04-11] MEDS: ROCEPHIN 1 GM in NS 50 ML IV SCH ×3 (06:18→22:46)
[2019-04-11] MEDS: SYNTHROID PO SCH (06:18)
[2019-04-11] MEDS: HUMALOG SUBQ SCH ×4 (06:19→22:46)
[2019-04-11] MEDS: PRILOSEC PO SCH (06:19)
--- NOTE | 2019-04-11 08:12 | PROGRESS NOTE ---
DATE: 04/11/2019 SUBJECTIVE: Mr. Merchant is in about the same general condition. We need to know from Dr. Miner about his further management for the Unna boots. We are going to repeat his electrolytes status. He has received enough antibiotics for about 7 days, and probably he can be discharged tomorrow if he feels better. -0 cc: Khurram Dinh MD
[2019-04-11 08:21] LABS: ALBUMIN 3.6 g/dL (3.5-5.0); CALCIUM 9.6 mg/dL (8.8-10.2); CREATININE 2.3 mg/dL (0.7-1.2); PHOSPHORUS 4.2 mg/dL (2.7-4.5); POTASSIUM 3.8 mmol/L (3.5-5.1)
[2019-04-11] MEDS: JANUVIA PO SCH (09:38)
[2019-04-11] MEDS: LEXAPRO PO SCH (09:38)
[2019-04-11] MEDS: ELIQUIS PO SCH ×2 (09:39→22:45)
[2019-04-11] MEDS: CENTRUM SILVER PO SCH (09:39)
[2019-04-11] MEDS: LASIX PO SCH ×2 (09:39→22:45)
[2019-04-11] MEDS: ZYLOPRIM PO SCH (09:39)
[2019-04-11] MEDS: VITAMIN D PO SCH (09:39)
[2019-04-11] MEDS: FLOMAX PO SCH (09:39)
[2019-04-11] MEDS: VITAMIN B-12 PO SCH (09:39)
--- NOTE | 2019-04-11 09:51 | NEPHROLOGY PROGRESS NOTE ---
DATE: 04/10/2019 Date Seen: 04/11/2019 Time Seen: 0705 SUBJECTIVE: Mr. Morrow is resting quietly in bed, states that he is feeling much better. States that he will probably be in the hospital to continue his antibiotic dosing per Dr. Dinh with possible discharge tomorrow or Monday. OBJECTIVE: Vital Signs: Temperature 98.8 degrees, blood pressure 117/62, heart rate 99, respirations. He is on room air last recorded saturation 95%. He has had 14 50 in. Patient states that he has been voiding adequate amount. This is not been recorded. LABORATORY DATA: Sodium 125, potassium 3.9, chloride 85, CO2 21, BUN 34, creatinine 1.8, glucose 174. His anion gap is 19, calcium 9.6, phosphorus 3.6, albumin 3.3. Previous hemoglobin 9.6. PHYSICAL EXAMINATION: General: This is a 73-year-old white male. He is resting quietly in bed. He appears chronically ill in no acute distress. Skin: Warm and dry. HEENT: Normocephalic, atraumatic. Conjunctivae pale. RENO. Mucous membranes are dry. Neck: Supple. Trachea midline. He has trace JVD. Cardiovascular: Regular rate and rhythm. He is without gallop. Lungs: Clear to auscultation bilaterally. Equal excursion on room air. Abdomen: Soft, large, round, nontender. Positive bowel sounds. Genitourinary: Not inspected. We have requested that the patient assist in keeping a strict I and O. Extremities: Continues with Unna boots to the lower extremities. Continues with 2+ edema to the upper thigh/hip region. Neurological: Alert and oriented x3. ASSESSMENT AND PLAN: 1. Chronic kidney disease stage 4. The patient's creatinine is actually been improving over the last several days. No indications for intervention. 2. Electrolytes. Patient's sodium continues to drop, now down to 125. We believe that this is actually secondary to his poor distal tubule sodium delivery and will take time for recovery. We will continue to monitor 3. Acid-base balance acceptable. 4. Anemia this is low but stable. 5. Bilateral cellulitis with venous stasis. The patient remains on in Unna boots. We encouraged that this continues to be followed on an outpatient basis with possibly Home Health. We will plan for follow up in our office in 2 to 3 weeks as indicated. I would like to thank you for allowing us to follow with this patient. Dictated by IRON Farias for Jesus Valencia MD Face to face encounter, data reviewed, discussed with Greg Fonseca on 04/11/19. I agree with the above assessment and plan of care. cc: IRON Farias MD Amit V. Vora, MD [facility]
[2019-04-11] MEDS: DUONEB (A & A) INH SCH (10:32)
[2019-04-11] MEDS: LEVAQUIN 750 MG/D5W 750 MG/150 ML IVPB IV SCH (16:42)
[2019-04-11] MEDS: XANAX PO SCH (22:46)
[2019-04-11] MEDS: REQUIP PO SCH (22:46)
[2019-04-12] MEDS: DUONEB (A & A) INH SCH ×2 (03:31→08:45)
[2019-04-12] MEDS: SYNTHROID PO SCH (06:58)
[2019-04-12] MEDS: PRILOSEC PO SCH (06:58)
[2019-04-12] MEDS: NORCO-7.5 PO SCH ×2 (06:58→11:56)
[2019-04-12] MEDS: HUMALOG SUBQ SCH ×2 (06:59→11:54)
[2019-04-12 07:59] LABS: ALBUMIN 3.5 g/dL (3.5-5.0); CALCIUM 9.7 mg/dL (8.8-10.2); CREATININE 2.1 mg/dL (0.7-1.2); POTASSIUM 3.8 mmol/L (3.5-5.1)
[2019-04-12] MEDS: ROCEPHIN 1 GM in NS 50 ML IV SCH (09:03)
[2019-04-12] MEDS: VITAMIN B-12 PO SCH (09:04)
[2019-04-12] MEDS: ZYLOPRIM PO SCH (09:04)
[2019-04-12] MEDS: LEXAPRO PO SCH (09:04)
[2019-04-12] MEDS: VITAMIN D PO SCH (09:04)
[2019-04-12] MEDS: ELIQUIS PO SCH (09:04)
[2019-04-12] MEDS: CENTRUM SILVER PO SCH (09:04)
[2019-04-12] MEDS: FLOMAX PO SCH (09:04)
[2019-04-12] MEDS: LASIX PO SCH (09:05)
[2019-04-12] MEDS: JANUVIA PO SCH (09:05)
--- NOTE | 2019-04-12 10:47 | PROGRESS NOTE ---
DATE: 04/12/2019 SUBJECTIVE: Mr. Merchant is feeling better. He is slightly drowsy partly on account of his medications and partly from hyponatremia. He has Unna boots, and I think we can discharge him here today. He has received antibiotics for his dermatitis and cellulitis, and he is better there. He will later be followed by Dr. Valencia, and I will see him in about 10 days. We are going to continue the Janumet, Januvia and metformin. cc: Khurram Dinh MD
[2019-04-12 11:49] VITALS: BP 131/58
--- NOTE | 2019-04-12 13:54 | NEPHROLOGY PROGRESS NOTE ---
DATE: 04/12/2019 ADDENDUM: PHYSICAL EXAMINATION: Vital Signs: Temperature 97.9 degrees, pulse 102, respiratory rate 20, blood pressure 123/65. Intake 1.4 L; output 200 mL. He has had multiple voids that were not measured or documented. HEENT: Normocephalic, atraumatic. RENO. Neck: Supple. There is no JVD today in the upright position. Cardiovascular: Regular rate and rhythm without murmur. Pulmonary: Clear bilaterally. He continues on room air. Abdomen: Soft, with positive bowel sounds. : Not inspected. He is voiding again. Strict I's and O's have not been recorded. Extremities: He has Unna boots bilateral lower extremities. Continues with 1+ to 2+ edema in the thigh and hip area. Neurologic: Grossly nonfocal. Integumentary: Skin is warm and dry otherwise. LAB DATA: Sodium 125, creatinine 2.1. ASSESSMENT AND PLAN: 1. Chronic kidney disease stage IV. He remains close to his historical baseline from a renal perspective. No indication for intervention otherwise. 2. Electrolytes: Sodium has been stable overnight at 125. No indications for intervention at this time. Monitor. 3. Bilateral cellulitis with venous stasis. Continues with Unna boots. 4. Disposition: From a renal perspective, patient can be discharged at the discretion of the primary. We will see him in the office within 2 weeks. Dictated by IRON Correia for Jesus Valencia MD Data reviewed, discussed with Cipriano Bee on 04/12/19. I agree with the above assessment and plan of care. cc: MD hKurram Mejía MD [facility]
--- NOTE | 2019-04-12 14:01 | NEPHROLOGY PROGRESS NOTE ---
DATE: 04/12/2019 SUBJECTIVE: Patient is sitting up on the side of the bed. He states he has attempted to be ambulatory with Physical Therapy. OBJECTIVE: Vital VITAL SIGNS: Temperature 97.9 degrees, pulse 102, respiratory rate 20, blood pressure 133/65. Intake 1.4 L. Output, 200 mL was measured. He has had multiple voids that were not measured or documented. PHYSICAL EXAMINATION: General: This is an elderly gentleman sitting up on the side of the bed. He is awake and alert, in no acute distress. HEENT: Normocephalic, atraumatic. PERRL. Neck: Supple. No JVD. Cardiovascular: Regular rate and rhythm. No murmur or gallop. Pulmonary: INCOMPLETE REPORT - DICTATION ENDS HERE Dictated by IRON Correia for Jesus Valencia MD Data reviewed, discussed with Cipriano Bee on 04/12/19. I agree with the above assessment and plan of care. cc: MD Khurram Mejía MD MTDD
--- NOTE | 2019-04-13 08:11 | DISCHARGE SUMMARY ---
ADMISSION DATE: 04/02/2019 DISCHARGE DATE: 04/12/2019 BRIEF HISTORY: Mr. Merchant, who is a 73-year-old white gentleman, was admitted with severe cellulitis involving both legs, more on the left side. DIAGNOSTIC DATA: In the hospital, initial chest x-ray did not reveal any evidence of pneumonia, infiltrates are noted. EKG had revealed sinus tachycardia. The patient had occasional PVC and ST changes are no longer present in the inferior and lateral leads. Renal ultrasound had revealed possible mild bilateral renal cortical thickening, nonobstructive stones noted. V/Q lung scan was negative. LABORATORY DATA: Revealed the presence of anemia, hemoglobin 10.3, hematocrit 31.9, white count was normal. INR was 1.44. D-dimer level was 0.61 which was higher than normal, which normal upper level is 0.52. Blood gases were unremarkable. Electrolytes were normal except for hyponatremia, sodium 125, BUN was 42, creatinine 2.1. Blood sugar was 175. Urinalysis revealed 10 to 20 RBCs. His lactate level at one point was 5.2. COURSE IN THE HOSPITAL: He was treated with IV Lasix, Aldactazide, and we continued his apixaban. We had a consultation with Dr. Valencia and also with Dr. Adam, who thought he had mild COPD with history of previous smoking, minimal pulmonary hypertension. He had a V/Q lung scan which was negative for pulmonary emboli. A renal ultrasound was almost unremarkable. We consulted Dr. Miner who put Unna boots on his legs for chronic swelling and we are going to continue Unna boots with home health nurse following. We will continue his Lasix, Aldactazide in the same dose. We can allow him maybe to increase salt intake. We will give him Janumet or Januvia and metformin and hold on the insulin for the time being. The family understands about the limitations in the treatment. He probably will be followed by Dr. Valencia in the future also. FINAL DIAGNOSES: 1. Bilateral severe leg edema with stasis dermatitis and cellulitis. 2. Mild chronic obstructive pulmonary disease. 3. Renal failure. 4. Hyponatremia. 5. Diabetes. FOLLOWUP: I will see him in about 10 days. cc: MD DILMA Knutson
--- NOTE | 2019-04-19 04:00 | DISCHARGE SUMMARY ---
ADMISSION DATE: 04/02/2019 DISCHARGE DATE: 04/12/2019 ADDENDUM: He was admitted with bilateral cellulitis. He had sepsis with lactate of 5.2 and pulse of 104. The sepsis was due to cellulitis, and it was treated. cc: Khurram Dinh MD
== END 2019-04-12 14:43 | disposition home health service (06) | DRG 872 ==
LOC: DIRADM 14:03 → 4N 15:16
PROVIDERS: ADMIT Internal Medicine; ATTEND Internal Medicine
CPT/HCPCS: 71020; 71046; 76770; 78582; 80048; 80053; 80069; 81001; 82550; 82805; 82948; 83036; 83605; 83735; 83880; 83935; 84300; 84484; 85025; 85027; 85379; 85610; 85730; 87040; 93005; 93010; 93306; 94640; 94761; 97110; 97162; 97530; A9270; A9539; A9540; J0696; J1815; J1940; J1956; XXXXX

== ENCOUNTER 2019-05-27 15:33 | Inpatient (IN) ==
--- NOTE | 2019-05-27 17:17 | Diag Imaging Result Doc PS360 ---
CHEST-1 VIEW - 05/27/2019 INDICATION: CVA COMPARISON: 04/08/2019 FINDINGS: Lung volumes are low. There is nonspecific linear atelectasis or infiltrate in the lung bases. No pneumothorax or pleural effusion. Heart size is top normal. IMPRESSION: Low lung volumes with nonspecific bibasilar atelectasis. Electronically signed by Lito Larry 05/27/2019 5:15 PM
[2019-05-27 17:22] LABS: BASO# 0.03 X1000 (0.0-0.2); BASO% 0.3 % (0.0-0.8); EOS# 0.17 X1000 (0.0-0.7); EOS% 1.6 % (0.0-10.0); HEMATOCRIT 32.8 % (42.0-52.0); HEMOGLOBIN 10.6 g/dL (14.0-18.0); IMM GRAN# 0.04 X1000 (0.0-0.04); IMM GRAN% 0.4 % (0.0-0.5); LYMPH# 1.27 X1000 (1.2-3.4); LYMPH% 11.9 % (20.5-51.1); MCH 36.2 PG (27-31); MCHC 32.3 g/dL (33-37); MCV 111.9 FL (81-99); MONO# 0.81 X1000 (0.11-0.59); MONO% 7.6 % (1.7-9.3); MPV 9.1 FL (7.4-10.4); NEUT# 8.35 X1000 (1.4-6.5); NEUT% 78.2 % (42.2-75.2); PLT 105 X1000 (130-400); RBC 2.93 XMIL (4.7-6.1); RDW 18.8 % (11.5-14.5); WBC 10.67 X1000 (4.8-10.8)
[2019-05-27 17:39] LABS: ALB/GLOB RATIO 1.1; ALBUMIN 3.5 g/dL (3.5-5.0); CALCIUM 9.2 mg/dL (8.8-10.2); CREATININE 2.1 mg/dL (0.7-1.2); POTASSIUM 4.6 mmol/L (3.5-5.1); TOTAL BILIRUBIN 0.75 mg/dL (0.20-1.00); TOTAL PROTEIN 6.8 g/dL (6.3-8.3)
[2019-05-27 17:48] LABS: EOS 4 % (1-10); LYMPHS 12 % (21-51); MONO 6 % (1-9); SEGS 78 % (42-75)
--- NOTE | 2019-05-27 18:49 | Diag Imaging Result Doc PS360 ---
CT HEAD W/O CONTRAST - 05/27/2019 INDICATION: CVA COMPARISON: 09/03/2018 FINDINGS: Stable diffuse cerebral atrophy. Stable mild periventricular white matter chronic microvascular disease. No intracranial mass or hemorrhage. The skull is intact. The sinuses, mastoids, and middle ears are clear. IMPRESSION: No acute process. This exam was performed using automated exposure control, adjustment of mA or kV according to patient size, and/or use of iterative reconstruction technique Electronically signed by Lito Larry 05/27/2019 6:47 PM
[2019-05-27] MEDS: LASIX IV SCH (19:04)
[2019-05-27] MEDS: ALDACTAZIDE 25/25 PO SCH (20:12)
[2019-05-27] MEDS: NORCO-7.5 PO PRN (20:13)
[2019-05-27] MEDS ORDERED: ELIQUIS PO SCH (21:00)
[2019-05-27] MEDS ORDERED: LYRICA PO SCH (21:00)
--- NOTE | 2019-05-27 21:35 | EKG Report ---
Test Performed on : 05/27/2019 5:20:45 PM Test Reason : CVA Blood Pressure : / mmHG Vent. Rate : 105 BPM Atrial Rate : 105 BPM P-R Int : 196 ms QRS Dur : 088 ms QT Int : 356 ms P-R-T Axes : 025 031 033 degrees QTc Int : 470 ms Sinus tachycardia. Low voltage QRS Borderline ECG When compared with ECG of 02-APR-2019 16:26, premature ventricular complexes. are no longer present Nonspecific T wave abnormality, improved in Inferior leads Confirmed by Mary Nathan MD ([id number]) on 05/28/2019 7:50:10 AM
[2019-05-28] MEDS: XANAX PO SCH ×3 (02:51→22:48)
[2019-05-28] MEDS: NORCO-7.5 PO PRN ×2 (02:55→21:29)
[2019-05-28] MEDS: LASIX IV SCH ×2 (05:50→17:00)
[2019-05-28] MEDS ORDERED: MIRALAX PO PRN (09:19)
[2019-05-28] MEDS ORDERED: FLOMAX PO PRN (09:19)
--- NOTE | 2019-05-28 09:49 | PROGRESS NOTE ---
DATE: 05/28/2019 SUBJECTIVE: Mr. Merchant's speech is still slurred. There is not a good explanation for it. The CT scan is negative this morning. Blood sugar is 169. I still think that the speech is very abnormal. He also has some difficulty in swallowing, and he had a light stroke. He has some basilar atelectasis in the lungs, and we will try to get the carotid flow studies on him. He has Unna boots and has some swelling in the upper part of the thigh on account of the compression. I am going to ask Dr. Miner to follow him. He is still hypotensive with blood pressure 107/57. -7 cc: Khurram Dinh MD
[2019-05-28] MEDS: ELIQUIS PO SCH ×2 (10:25→20:24)
[2019-05-28] MEDS: ALDACTAZIDE 25/25 PO SCH ×2 (10:25→20:24)
--- NOTE | 2019-05-28 10:52 | HISTORY AND PHYSICAL ---
HISTORY OF PRESENT ILLNESS: Mr. Merchant is a 74-year-old white gentleman who comes to the office. He had some difficulty in swallowing, and had problems with speech. His speech was definitely slurred, and he has more increasing leg edema, with some evidence of cellulitis on the legs. Hence, he was admitted. Other details of personal, past, and family history reveal history of multiple kidney stones. He had history of DVT in the left leg, and had vena caval umbrella filter placed in many years ago. He has chronic venous stasis related edema on both legs, more on the left side. He also has mild chronic renal failure, history of hypertension. There is past surgical history of the filter put in. There is no other significant past surgical history, except for removal of kidney stones in the past. He does not drink now. He used to drink some on a regular basis. However, for the last 3 months, he has not been drinking. He does not smoke. ALLERGIES: He is not allergic to any medications. CURRENT MEDICATIONS: Include [place] 7.5 four times a day, alprazolam at bedtime, he takes apixaban, Eliquis 5 mg b.i.d., spironolactone with hydrochlorothiazide twice a day, he also takes Lyrica at bedtime 50 mg. Other than that, most of his medications are p.r.n. REVIEW OF SYSTEMS: He denies history of headaches or seizures or blurred vision. He has generalized weakness. PHYSICAL EXAMINATION: VITAL SIGNS: Temperature normal, pulse 92 per minute, blood pressure 98/56, temperature normal. HEENT: Head normocephalic. Pupils PERRLA. Fundus examination not done. ENT examination unremarkable. NECK: Supple. JVP normal. There is no evidence of lymphadenopathy, thyroid enlargement. EXTREMITIES: He has bilateral leg edema, more on the left side. He is on boots at the present time. However, the upper thigh is swollen, more on the left side. BREASTS: Normal. CHEST: Normal inspection. LUNGS: Clear to auscultation. CARDIOVASCULAR: PMI in the normal position. Heart sounds normal. No murmur, gallop, or rub noted. ABDOMEN: Distended. There is minimal ascites on clinical examination. No organomegaly noted. No guarding, rigidity noted. RECTAL: Deferred. CENTRAL NERVOUS SYSTEM: Higher functions. Speech is definitely slurred. He has difficulty in swallowing. Cranial nerves normal. Motor and sensory system examination unremarkable. Deep tendon reflexes normal. Plantars downgoing. Skull and spine examination normal for age. No cerebellar signs or signs of meningeal irritation. LOCOMOTOR AND SKIN: Unremarkable. IMPRESSION: The patient has difficulty in swallowing. He has speech disturbance, indicative of cerebrovascular accident. He also has cellulitis and has bilateral stasis edema. The cellulitis is mild. cc: Khurram Dinh MD
[2019-05-28] MEDS: ROCEPHIN 1 GM in NS 50 ML IV SCH (11:41)
[2019-05-28 12:24] LABS: BLOOD TYPE ARTERIAL; SAMPLE BLOOD
[2019-05-28 12:25] LABS: ALLEN TEST YES; BE 1.9 mmoll (-3.0-3.0); HCO3-(ACT) 26.3 mmoll (20.0-26.0); METHB 0.9 % (0.0-1.5); MODALITY CANNULA; O2(CT) 14.2 mL/dL (15.0-23.0); O2HB 92.2 % (95.0-99.0); PCO2(98.6) 36 mmHg (35-45); PO2(98.6) 61 mmHg (60-100); SAO2 95.4 % (95.0-100.0); THB 10.9 g/dL (11.5-17.4); pH(98.6) 7.46 (7.35-7.45)
--- NOTE | 2019-05-28 12:28 | CONSULTATION ---
DATE OF CONSULTATION: 05/28/2019 LOCATION: Room 428. HISTORY OF PRESENT ILLNESS: Mr. Merchant is 74 years old and he was admitted with dysarthria and possible dysphagia. I have reviewed the admission notes and hospital notes from prior admissions. I placed a phone call to each of four phone numbers listed for contact information. One of these was answered, and the line disconnected when I identified myself. I left a voicemail at one of the other numbers. Therefore, history is taken solely from the hospital notes and from Mr. Merchant himself. I believe that Mr. Merchant may have some forgetfulness, and I am not certain his history is valid. He told me that he has been aware of slurred speech off and on in recent weeks, but thinks it has not been a major problem. He told me he has not been aware of trouble swallowing, and he specifically denies feeling choked or strangled. He has felt weak all over. He has felt heavy in the legs. He has chronic numbness in the feet. He reports supervises his medications, and he cannot name them or tell me how they are dispensed, but he is confident medicines are dispensed as prescribed. Chart shows home medicines to include hydrocodone, alprazolam, ropinirole, tramadol, possibly mirtazapine, sublingual B12 supplement. On my count, there are 20 total medication entries. We do not have urine drug screen reported this admission. Lab shows anemia, platelet count borderline at 105,000, MCV high at 111.9. Sodium 133, BUN 48 (gradually increasing since BUN of 15 on 09/19/2018). Blood sugar was 300s on admission, later 200s, and more recently 100s. Imaging includes noncontrast CT of the head showing usual white matter changes typical for age, nothing focal or acute, no bleeding. He has been afebrile. Heart rate has ranged 90s to 100s. Systolic blood pressures have ranged 90s to 110s. Past history is remarkable for hypertension, mild chronic renal failure, DVT, chronic venous stasis in the legs, diabetes mellitus. There is history of ethanol use. Mr. Merchant told me that he stopped using whiskey 6 or 8 months ago, and he continues to have an occasional beer. PHYSICAL EXAMINATION: On exam, Mr. Merchant is awake, alert, attentive. He answered questions appropriately. Speech is significantly dysarthric. There is a little bit of a scanning quality, but more prominent is the lingual dysarthria. He did better with labial and guttural sounds. Language function is intact on bedside testing of repeating, naming, comprehension. I did not test reading, handwriting, calculation. He did not discuss recent news when asked to do so. He missed the day of the week by just one day and was otherwise completely oriented to all parameters. Head and neck are unremarkable. Visual brush are full, tested grossly by confrontational finger counting. Extraocular movements are full. Facial motility is a little bit diminished bilaterally, but symmetric. Gag is intact. Palate is midline. Tongue is midline. Hearing is poor. Shoulder shrug is equal. Strength is normal in the arms and legs. Limb tone is symmetric. There is asterixis present in the arms. I did not see any other abnormal movement. He did fairly well on [id number] testing bilaterally. I did not test his gait. He reports diminished pinprick and light touch appreciation in a stocking pattern, relatively dense deficit extending to about the knee bilaterally. He has good pinprick appreciation over the hands and face. Proprioception is good at the great toe MTP joint bilaterally. Reflexes are absent at the ankles, 2+ at the knees, 1+ at the wrists, all symmetric. Plantar response is silent bilaterally. IMPRESSION: 1. Significant dysarthria. This is a nonfocal finding and could be due to any of a number of problems. I wonder about medication effect, uremia, combinations of factors. I do not see evidence of discrete stroke to account for dysarthria. 2. Asterixis. This is likely related to his fairly moderate uremia. There may also be multiple factors to account for this problem. 3. I suspect he has at least a mild cognitive impairment syndrome. Depending on his clinical course, we might more thoroughly evaluate cognitive function later. 4. Clinical evidence of peripheral neuropathy, presumed diabetic neuropathy. There could also be contribution from prior excessive ethanol use. I don't think this problem needs urgent evaluation during hospital stay. Negative noncontrast CT is reassuring. I believe that MRI may not be an option because of the filter in place. Depending on his clinical course, we might consider electroencephalogram to get more information about central nervous system function. Again, I placed phone calls to each of the 4 phone numbers provided for contact, and was not able to get any other history. If there is more history, other recommendations might be considered. Thank you for asking Neurology to see Mr. Merchant. cc: MD Khurram Hirsch III, MD MTDD
[2019-05-28] MEDS: NORCO-7.5 PO SCH ×2 (13:15→16:02)
[2019-05-28] MEDS: DUONEB (A & A) INH SCH ×2 (15:28→19:50)
[2019-05-28] MEDS ORDERED: GLUCOPHAGE XR PO SCH (17:00)
--- NOTE | 2019-05-28 17:44 | GENERAL SURGERY CONSULTATION ---
DATE: 05/28/2019 HPI: This 74-year-old gentleman known to me with chronic lower extremity edema. He was admitted with altered mental status and concern for possible CVA. He has had Unna wraps in place been followed with me as an outpatient. MEDICAL HISTORY: Multiple chronic medical problems including diabetes, venous stasis, history of DVT, heart failure, chronic edema and kidney stones. SURGICAL HISTORY: No vascular procedures of the lower extremity. SOCIAL HISTORY: No tobacco, alcohol or drugs. He has an attentive . FAMILY HISTORY: Reviewed, noncontributory. REVIEW OF SYSTEMS: Ten point negative. PHYSICAL EXAM: He is afebrile, heart rate in low 100s, blood pressure 109/55, oxygen saturation 94% on 3 L. He is arousable, alert but speech is somewhat slurred.HEENT: Voice is a little slower than normal more slurred. I do not see any obvious facial droop. Cardiovascular: Low- grade tachycardia. Pulmonary: No increased work of breathing. Abdomen: Protuberant but soft, nontender, nondistended. Integument: Warm, dry without jaundice. Psychiatric: Not anxious but neurologically he does have some dysarthria but otherwise generalized weakness but no other focal deficit. Peripheral vascular: Unna wraps are in place. His feet are warm, well perfused. No obvious cellulitis extending proximally or distally. LABS: White count 10, hematocrit 32, platelets 108,000. ABG 7.46, 36, 61, 26, creatinine is 2.1, glucose in the 200 to 300. LFTs are normal. ASSESSMENT AND PLAN: This is a 74-year-old gentleman with chronic venous stasis and edema with some inflammatory change associated this. I would continue his Unna wrap therapy while he is undergoing his ongoing medical evaluation. I do not suspect that his legs are source of this and he is due for Unna wrap change today but I will ask Aylin do this tomorrow at the bedside. I agree with antibiotics he is on. Will follow along but no plans surgical intervention. cc: MD Khurram Craig MD
[2019-05-28] MEDS: REQUIP PO SCH (20:24)
[2019-05-28] MEDS: REMERON PO SCH (20:24)
[2019-05-28] MEDS ORDERED: XANAX PO SCH (21:00)
[2019-05-29] MEDS: LASIX IV SCH ×2 (05:57→16:43)
[2019-05-29] MEDS: SYNTHROID PO SCH ×2 (05:57→06:35)
[2019-05-29] MEDS: DUONEB (A & A) INH SCH ×3 (08:25→21:16)
[2019-05-29] MEDS: ZYLOPRIM PO SCH (08:54)
[2019-05-29] MEDS: ALDACTAZIDE 25/25 PO SCH ×2 (08:54→22:54)
[2019-05-29] MEDS: VITAMIN B-12 PO SCH (08:54)
[2019-05-29] MEDS: CENTRUM SILVER PO SCH (08:54)
[2019-05-29] MEDS: PRILOSEC PO SCH (08:54)
[2019-05-29] MEDS: ELIQUIS PO SCH ×2 (08:54→22:55)
[2019-05-29] MEDS: JANUVIA PO SCH (08:54)
[2019-05-29] MEDS: LEXAPRO PO SCH (08:54)
[2019-05-29] MEDS: VITAMIN D PO SCH (08:54)
[2019-05-29] MEDS: ROCEPHIN 1 GM in NS 50 ML IV SCH (08:55)
[2019-05-29] MEDS: NORCO-7.5 PO SCH ×3 (08:55→23:08)
--- NOTE | 2019-05-29 09:46 | PROGRESS NOTE ---
DATE: 05/29/2019 Mr. Merchant's speech is improving to some extent. His PO2 was 61, as noted on ABGs. He has been started on oxygen. His blood sugar was 272. He is getting Januvia as well as metformin and he is on Humalog sliding scale. We will continue with the current management on him. -4 cc: Khurram Dinh MD
[2019-05-29] MEDS: NORCO-7.5 PO PRN (10:40)
[2019-05-29] MEDS: HUMALOG SUBQ SCH ×3 (11:39→22:55)
--- NOTE | 2019-05-29 12:24 | PROGRESS NOTE ---
DATE: 05/29/2019 Mr. Morrow is awake, alert, and attentive this morning. His speech is significantly improved, and significantly less dysarthric than when I talked with him yesterday. There is not a language deficit apparent on brief bedside testing. He still has more trouble with lingual sounds than with other sounds but is improved since yesterday. confirms he has had some forgetfulness at baseline. I think it would be reasonable to consider cholinesterase inhibitor trial electively, not urgent. Thanks for asking Neurology to see Mr. Morrow. cc: MD Khurram Hirsch III, MD [facility]
--- NOTE | 2019-05-29 13:08 | Carotid Study ---
DATE: 05/28/2019 PROCEDURE: Carotid ultrasound. DATE OF STUDY: 05/28/2019. REQUESTING PHYSICIAN: Dr. Dinh. TELEGRAPH LINEMAN: Rosas. INDICATIONS: Possible CVA. EQUIPMENT: Cardozid E 9 ultrasound system with a 9 L-D transducer. FINDINGS: Complete image of the diagram ultrasound. Complete diagram ultrasound images could be seen in the patient's scanned medical records. Peak systolic velocity in internal system on the right side is 87 at the distal internal. The peak systolic velocity on the left side in the internal system is in the proximal internal and it is at 85. Calculated internal common ratio on the right 0.99, left 0.82. Calculated stenosis on the right 0 to 39 percent, left 0 to 39 percent. There appears to be some atherosclerosis, but at this time does not produce hemodynamically significant flow-limiting stenosis by strict velocity criteria. Both vertebral arteries were antegrade flow. INTERPRETATION: By strict velocity criteria, no hemodynamically significant flow-limiting stenosis. cc: MD Khurram Clinton MD
[2019-05-29] MEDS: REMERON PO SCH (22:54)
[2019-05-29] MEDS: REQUIP PO SCH (22:54)
[2019-05-29] MEDS: XANAX PO SCH (22:55)
[2019-05-30] MEDS: LASIX IV SCH ×2 (06:01→18:51)
[2019-05-30] MEDS: SYNTHROID PO SCH (06:01)
[2019-05-30] MEDS: HUMALOG SUBQ SCH ×4 (07:01→22:36)
[2019-05-30] MEDS: NORCO-7.5 PO SCH ×3 (09:01→22:36)
[2019-05-30] MEDS: GLUCOPHAGE XR PO SCH (09:02)
[2019-05-30] MEDS: JANUVIA PO SCH (09:02)
[2019-05-30] MEDS: LEXAPRO PO SCH (09:02)
[2019-05-30] MEDS: CENTRUM SILVER PO SCH (09:03)
[2019-05-30] MEDS: ELIQUIS PO SCH ×2 (09:03→22:35)
[2019-05-30] MEDS: VITAMIN B-12 PO SCH (09:03)
[2019-05-30] MEDS: VITAMIN D PO SCH (09:03)
[2019-05-30] MEDS: ZYLOPRIM PO SCH (09:03)
[2019-05-30] MEDS: ROCEPHIN 1 GM in NS 50 ML IV SCH (09:04)
[2019-05-30] MEDS: PRILOSEC PO SCH (09:04)
[2019-05-30] MEDS: ALDACTAZIDE 25/25 PO SCH ×2 (09:07→22:37)
--- NOTE | 2019-05-30 09:42 | PROGRESS NOTE ---
DATE: 05/30/2019 SUBJECTIVE: His blood sugar was 212 today. Urine culture grew mixed tarsha. The colony count is probably not good enough, so he does not have a UTI. He has some cellulitis on the legs. His mental status is about the same. Speech has improved to about 50% since we stopped the Lyrica. Neurology consult was noted, and we will start Aricept on him. We have already called for the prescription. We will discharge him today. -8 cc: Khurram Dinh MD
[2019-05-30] MEDS: DUONEB (A & A) INH SCH ×3 (10:07→19:25)
--- NOTE | 2019-05-30 10:14 | DISCHARGE SUMMARY ---
ADMISSION DATE: 05/27/2019 DISCHARGE DATE: 05/30/2019 BRIEF HISTORY: Mr. Merchant, who is a 74-year-old white gentleman who was admitted with slurred speech and some cellulitis involving the left leg. He has chronic venous stasis edema on both legs and he has some cellulitis with it on the left side. He had sudden onset of somewhat subacute onset of speech disturbance and mild swallowing dysfunction. DIAGNOSTIC DATA: In the hospital CT scan was unremarkable. Carotid flow studies were unremarkable. Chest x-ray revealed low lung volumes with nonspecific basilar atelectasis. LABORATORY DATA: Revealed anemia with hemoglobin 10.6, white count was 10.67. Blood gases revealed mild hypoxia, PO2 was 61. Chemistry profile revealed blood sugar of 212. However, when he came in, his electrolytes were normal. BUN was 40, creatinine 2.1. This is probably a prerenal azotemia partly because of all the Lasix. HOSPITAL COURSE: He had a consultation with Dr. Burk whose impression was significant dysarthria. He had asterixis and some evidence of peripheral neuropathy, probably from diabetes. Dr. Burk followed him and finally we decided that he would benefit some from drugs like Aricept which we are going to start at home now. I told the family not to expect a rapid response from them. We will also give Keflex and continue Lasix for the stasis edema and dermatitis. He has a nurse that follows him. He has Unna boots which he will continue. We will also give him a glucometer and test strips prescription. FINAL DIAGNOSIS: 1. Sudden onset of dysarthria, possible very likely to be cerebrovascular accident. However, the CT scan is negative. He cannot get MRI on account of the filter. 2. He has cellulitis on the left leg. 3. He has peripheral neuropathy secondary from diabetes. 4. History of multiple renal stones. DISPOSITION: I will follow him in the office. cc: Khurram Dinh MD
--- NOTE | 2019-05-30 15:07 | Diag Imaging Result Doc PS360 ---
EXAM: CHEST-PORTABLE HISTORY: o2 sat. 86% on RA TECHNIQUE: Chest single view COMPARISON: 05/27/2019 FINDINGS: Poor inspiratory effort. The heart is mildly prominent. The vessels are not distended. There are no infiltrates. No effusion identified. IMPRESSION: Stable chest Electronically signed by Pascual Finney 05/30/2019 3:05 PM
[2019-05-30] MEDS: REQUIP PO SCH (22:35)
[2019-05-30] MEDS: REMERON PO SCH (22:35)
[2019-05-30] MEDS: XANAX PO SCH (22:36)
[2019-05-31] MEDS: LASIX IV SCH (06:42)
[2019-05-31] MEDS: HUMALOG SUBQ SCH ×2 (06:42→12:21)
[2019-05-31] MEDS: SYNTHROID PO SCH (06:43)
[2019-05-31] MEDS: DUONEB (A & A) INH SCH ×2 (07:37→09:28)
[2019-05-31] MEDS: ROCEPHIN 1 GM in NS 50 ML IV SCH (09:08)
[2019-05-31] MEDS: GLUCOPHAGE XR PO SCH (09:09)
[2019-05-31] MEDS: ELIQUIS PO SCH (09:09)
[2019-05-31] MEDS: ALDACTAZIDE 25/25 PO SCH (09:09)
[2019-05-31] MEDS: ZYLOPRIM PO SCH (09:09)
[2019-05-31] MEDS: VITAMIN B-12 PO SCH (09:10)
[2019-05-31] MEDS: PRILOSEC PO SCH (09:10)
[2019-05-31] MEDS: LEXAPRO PO SCH (09:10)
[2019-05-31] MEDS: CENTRUM SILVER PO SCH (09:10)
[2019-05-31] MEDS: JANUVIA PO SCH (09:10)
[2019-05-31] MEDS: VITAMIN D PO SCH (09:10)
[2019-05-31] MEDS: NORCO-7.5 PO SCH ×2 (09:11→13:30)
[2019-05-31 11:05] VITALS: BP 121/66
--- NOTE | 2019-05-31 12:08 | DISCHARGE SUMMARY ---
ADMISSION DATE: 05/27/2019 DISCHARGE DATE: 05/31/2019 ADDENDUM ON THE DISCHARGE SUMMARY: Mr. Morrow's O2 saturation was 84% yesterday. Today, it is 91% on room air and 99% on 2 L. We are going to make arrangements for oxygen. His chest x-ray was unremarkable. He has history of pulmonary embolism and mild COPD, which we will take care of it. FINAL DIAGNOSES: 1. Chronic obstructive pulmonary disease. 2. The patient has a history of speech disturbance, which could be because of the stroke or because of the medications. cc: Khurram Dinh MD
--- NOTE | 2019-05-31 16:02 | PROGRESS NOTE ---
DATE: 05/31/2019 SUBJECTIVE: Mr. Morrow is feeling better. We are going to make arrangements for his oxygen and he is going home today after that. His repeat chest x-ray is negative. O2 saturation is about 96% with 2 L. We will discharge him today. -7 cc: Khurram Dinh MD
== END 2019-05-31 14:23 | disposition home health service (06) | DRG 65 ==
LOC: DIRADM 15:33 → 4N 16:30
PROVIDERS: ADMIT Internal Medicine; ATTEND Internal Medicine

== ENCOUNTER 2019-10-07 02:47 | Inpatient (IN) ==
[2019-10-07] MEDS ORDERED: HUMULIN R IV ONE ×2 (03:00→06:44)
[2019-10-07] MEDS ORDERED: NS 1,000 ML IV ONE ×2 (03:00→06:43)
[2019-10-07 03:50] LABS: BASO# 0.04 X1000 (0.0-0.2); BASO% 0.2 % (0.0-0.8); HEMATOCRIT 30.5 % (42.0-52.0); HEMOGLOBIN 9.6 g/dL (14.0-18.0); IMM GRAN% 0.6 % (0.0-0.5); LYMPH# 0.42 X1000 (1.2-3.4); LYMPH% 2.4 % (20.5-51.1); MCH 34.3 PG (27-31); MCHC 31.5 g/dL (33-37); MCV 108.9 FL (81-99); MONO# 0.84 X1000 (0.11-0.59); MONO% 4.8 % (1.7-9.3); MPV 9.9 FL (7.4-10.4); NEUT# 16.09 X1000 (1.4-6.5); PLT 123 X1000 (130-400); RDW 16.9 % (11.5-14.5); WBC 17.49 X1000 (4.8-10.8)
[2019-10-07] MEDS ORDERED: REQUIP PO ONE (04:16)
[2019-10-07] MEDS ORDERED: TYLENOL PO ONE (04:17)
[2019-10-07 04:27] LABS: INR 1.79; PROTIME 21.2 Seconds (11.0-16.0)
[2019-10-07 04:28] LABS: PTT 31.4 Seconds (22.3-41.8)
[2019-10-07 04:29] LABS: ALB/GLOB RATIO 1.8; CALCIUM 9.5 mg/dL (8.8-10.2); CREATININE 2.4 mg/dL (0.7-1.2); POTASSIUM 4.5 mmol/L (3.5-5.1); TOTAL BILIRUBIN 1.04 mg/dL (0.20-1.00); TOTAL PROTEIN 6.2 g/dL (6.3-8.3)
[2019-10-07] MEDS ORDERED: NS 1,000 ML, NS 1,000 ML IV ONE ×2 (04:56)
[2019-10-07 05:10] LABS: URINE SOURCE CLEAN CATCH
[2019-10-07] MEDS ORDERED: NS 1,000 ML IV SCH ×2 (05:15→16:00)
[2019-10-07 05:16] LABS: BILIRUBIN URINE NEGATIVE (NEGATIVE); BLOOD URINE MODERATE (NEGATIVE); COLOR YELLOW; GLUCOSE URINE >1000 mg/dL (NEGATIVE); KETONE URINE TRACE mg/dL (NEGATIVE); LEUKOCYTES URINE MODERATE (NEGATIVE); NITRITE URINE NEGATIVE (NEGATIVE); PH URINE 5.5; PROTEIN URINE 30 mg/dL (NEGATIVE); SP GRAVITY URINE 1.025; TURBIDITY URINE CLEAR (CLEAR); UR EPITHELIAL CELLS <10 /HPF (<10); URINE BACTERIA 1+ /HPF; URINE RBC TNTC /HPF (<10); URINE WBC 20-40 /HPF (<10); UROBILINOGEN URINE NORMAL (NORMAL)
[2019-10-07] MEDS ORDERED: VANCOMYCIN 1 GM/NS 1 GM/250 ML IVPB IV ONE (05:24)
[2019-10-07] MEDS ORDERED: ZOSYN 3.375 GM in NS 50 ML IV ONE (05:24)
[2019-10-07] MEDS: LEVOPHED 8 MG in D5 1/2 NS 250 ML IV SCH ×2 (05:26→14:06)
[2019-10-07] MEDS: NS 1,000 ML IV SCH ×4 (05:50→15:36)
--- NOTE | 2019-10-07 06:36 | PROVIDER DOCUMENTATION ---
HPI-Fever - General Chief Complaint: SEPSIS ALERT - D Stated Complaint: fall Time Seen by Provider: 10/07/19 02:59 Source: patient, family, EMS Allergies/Adverse Reactions: Patient Allergies Allergy/AdvReac Type Severity Reaction Status Date / Time No Known Allergies Allergy Verified 10/07/19 03:13 Home Medications: Home Medication List Medication Instructions Recorded Confirmed Last Taken Type Allopurinol 300 mg PO DAILY 07/24/14 10/07/19 04/01/19 History Furosemide [Lasix] 80 mg PO DAILY 11/19/15 10/07/19 04/02/19 History Levothyroxine [Synthroid] 275 microgm PO DAILY 11/19/15 10/07/19 04/02/19 History Omeprazole 40 mg PO DAILY 11/19/15 10/07/19 04/02/19 History Tamsulosin [Flomax] 0.4 mg PO HS PRN 11/19/15 10/07/19 04/01/19 History Apixaban [Eliquis] 5 mg PO BID #0 07/30/16 10/07/19 04/02/19 Rx Cyanocobalamin (Vitamin B-12) 1,000 mcg SL DAILY 05/28/18 10/07/19 04/02/19 History [Vitamin B-12] Polyethylene Glycol 3350 [Miralax] 17 gm PO Q12H PRN PRN 05/28/18 10/07/19 04/02/19 History Escitalopram [Lexapro] 20 mg PO DAILY tablet 06/05/18 10/07/19 04/02/19 Rx Hydrocodone Bit/Acetaminophen 7.5 mg PO TID 09/10/18 04/02/19 03/31/19 History [Hydrocodon-Acetaminoph 7.5-325] Metformin E.r. [Glucophage Xr] 500 mg PO BID CC 04/02/19 10/07/19 04/01/19 History Ropinirole HCl [Requip] 2 mg PO QHS 04/02/19 10/07/19 04/01/19 History Sitagliptin Phosphate [Januvia] 100 mg PO DAILY 04/02/19 10/07/19 04/02/19 Histo ry Albuterol 2.5MG/Ipratrop 0.5MG 3 ml INH RTTID neb 04/12/19 10/07/19 Unknown Rx [Duoneb (A & A)] Alprazolam [Xanax] 1 mg PO QHS #0 04/12/19 10/07/19 04/01/19 Rx Cholecalciferol (Vit D3) [Vitamin 1,000 unit PO DAILY tab 04/12/19 10/07/19 Unknown Rx D3] Spironolactone/Hctz [Aldactazide 1 ea PO BID tab 05/30/19 10/07/19 Unknown Rx ] - History of Present Illness-Fever Nature of Presenting Problem: 74 y/o WM brought to ER after collapsing at home last night. Pts notes that he started complaining of chills at about 7pm and then tried to go to bathroom during the night falling against toilet. On arrival pt is AOx3 but slow to respond. adds that he has been having problems with frequent urination lately as well. Presenting condition causes difficulty obtaining complete H&P. 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 Cognitive Baseline: alert, oriented x3 Modifying Factors: improves with: urinating Associated Symptoms: reports: fever/chills, weakness, trouble walking Similar Symptoms Previously?: No Recently seen or treated by another doctor?: No - Glascow Coma Score Best Eye Response (Marion): (3) open to voice Best Verbal Response (Marion): (5) oriented Best Motor Response (Shantelle): (6) obeys commands Review of Systems - Adult - REVIEW OF SYSTEMS - ADULT ROS:: limited per condition Constitutional: reports: chills, fever Eyes: reports: no symptoms reported, see HPI Ears, Nose, Mouth & Throat: reports: no symptoms reported, see HPI Cardiovascular: reports: no symptoms reported, see HPI Respiratory: reports: see HPI Gastrointestinal: reports: no symptoms reported, see HPI Genitourinary: reports: see HPI, frequency Musculoskeletal: reports: no symptoms reported, see HPI Integumentary: reports: no symptoms reported, see HPI Neurological: reports: no symptoms reported, see HPI Psychiatric: reports: no symptoms reported, see HPI Endocrine: reports: no symptoms reported, see HPI Hematologic/Lymphatic: reports: no symptoms reported, see HPI Allergic/Immunologic: reports: no symptoms reported, see HPI All Other Systems: Reviewed and Negative Past History - Adult - PAST MEDICAL HISTORY-ADULT Review of Records: reports: Nursing Assessment Review, Medications Reviewed, Social history reviewed & non-contributory. Cardiovascular: reports: blood clots (left leg DVT), HTN Gastrointestinal: reports: GI bleed Physical Exam-General - PHYSICAL EXAM-ADULT Exam Limited by: condition Initial Vital Signs Reviewed: Yes - CONSTITUTIONAL General Appearance: alert, mild distress, lethargic, slow to respond - EYES Eyes: PERRL/EOMI - HEAD, EARS, NOSE, MOUTH & THROAT HENMT: normocephalic/atraumatic, moist mucous membranes, TMs normal - NECK Neck: non-tender, full range of motion, supple, normal inspection - RESPIRATORY Respiratory: chest non-tender, lungs clear, normal breath sounds, no pleuratic chest pain, no respiratory distress, no accessory muscle use - CARDIOVASCULAR Cardiovascular: normal peripheral pulses, no edema, no gallop, no JVD, no murmur , tachycardia - GASTROINTESTINAL (ABDOMEN) Abdominal Exam: normal bowel sounds, soft, no organomegaly, no pulsatile mass, tenderness (suprapubic) - LYMPHATIC Lymphatic: no adenopathy - MUSCULOSKELETAL Back Exam: normal inspection, no CVA tenderness, no vertebral tenderness Extremity: normal range of motion, non-tender, normal inspection, no pedal edema , no calf tenderness, normal capillary refill Progress - PLAN OF CARE/RESULTS Progress/Plan/Lab Results: Vital Signs - 8 hr 10/07/19 02:50 10/07/19 02:55 10/07/19 02:57 Temperature 101.9 F H 99.6 F Pulse Rate 117 H 109 H Respiratory Rate 20 16 Blood Pressure 109/62 86/43 O2 Sat by Pulse Oximetry 100 99 98 10/07/19 02:59 10/07/19 03:00 10/07/19 03:02 Temperature Pulse Rate 118 H 118 H 119 H Respiratory Rate 24 27 H 29 H Blood Pressure 86/43 85/42 O2 Sat by Pulse Oximetry 99 98 97 10/07/19 03:15 10/07/19 03:17 10/07/19 03:23 Temperature Pulse Rate 117 H 118 H 117 H Respiratory Rate 27 H 26 H 26 H Blood Pressure 88/44 82/46 O2 Sat by Pulse Oximetry 97 97 97 10/07/19 03:30 10/07/19 03:32 10/07/19 03:45 Temperature Pulse Rate 107 H 116 H 116 H Respiratory Rate 26 H 32 H 27 H Blood Pressure 95/47 100/49 O2 Sat by Pulse Oximetry 96 96 96 10/07/19 03:47 10/07/19 03:54 10/07/19 04:00 Temperature Pulse Rate 117 H 116 H 117 H Respiratory Rate 22 24 24 Blood Pressure 96/46 97/45 O2 Sat by Pulse Oximetry 97 98 97 10/07/19 04:02 10/07/19 04:04 10/07/19 04:15 Temperature Pulse Rate 117 H 117 H 118 H Respiratory Rate 26 H 28 H 24 Blood Pressure 94/45 93/47 O2 Sat by Pulse Oximetry 97 97 95 10/07/19 04:17 Temperature Pulse Rate 118 H Respiratory Rate 28 H Blood Pressure 83/45 O2 Sat by Pulse Oximetry 96 10/07/19 04:25 Influenza Screen - Final Nasopharyngeal Laboratory Results - last 24 hr 10/07/19 10/07/19 10/07/19 03:02 03:12 03:12 WBC 17.49 H RBC 2.80 L Hgb 9.6 L Hct 30.5 L MCV 108.9 H MCH 34.3 H MCHC 31.5 L RDW Std Deviation 16.9 H Plt Count 123 L MPV 9.9 Immature Gran % (Auto) 0.6 H Neut % (Auto) 92.0 H Lymph % (Auto) 2.4 L Lipscomb % (Auto) 4.8 Eos % (Auto) 0.0 Baso % (Auto) 0.2 Immature Gran # (Auto) 0.10 H Neut # (Auto) 16.09 H Lymph # (Auto) 0.42 L Lipscomb # (Auto) 0.84 H Eos # (Auto) 0.00 Baso # (Auto) 0.04 PT INR PTT (Actin FS) Sodium 129 L Potassium 4.5 Chloride 89 L Carbon Dioxide 17 L Anion Gap 23 BUN 58 H Creatinine 2.4 H Estimated GFR/1.73 m2 27 BUN/Creatinine Ratio 24 Glucose 540 H* POC Glucose 478 H D Calculated Osmolality 299 Calcium 9.5 Total Bilirubin 1.04 H AST 23 ALT 17 Alkaline Phosphatase 77 Creatine Kinase 70 Troponin T Total Protein 6.2 L Albumin 4.0 Globulin 2.2 Albumin/Globulin Ratio 1.8 Plasma Lactate Urine Source Urine Color Urine Turbidity Urine pH Ur Specific [place] Urine Protein Ur Glucose (Stick) Ur Ketones (Stick) Urine Blood Urine Nitrite Urine Bilirubin Urobilinogen Dipstick Urine Leukocytes Urine WBC (Auto) Urine RBC (Auto) U Epithel Cells (Auto) Urine Bacteria (Auto) 10/07/19 10/07/19 10/07/19 03:12 03:12 04:07 WBC RBC Hgb Hct MCV MCH MCHC RDW Std Deviation Plt Count MPV Immature Gran % (Auto) Neut % (Auto) Lymph % (Auto) Lipscomb % (Auto) Eos % (Auto) Baso % (Auto) Immature Gran # (Auto) Neut # (Auto) Lymph # (Auto) Lipscomb # (Auto) Eos # (Auto) Baso # (Auto) PT 21.2 H INR 1.79 PTT (Actin FS) 31.4 Sodium Potassium Chloride Carbon Dioxide Anion Gap BUN Creatinine Estimated GFR/1.73 m2 BUN/Creatinine Ratio Glucose POC Glucose Calculated Osmolality Calcium Total Bilirubin AST ALT Alkaline Phosphatase Creatine Kinase Troponin T 0.056 Total Protein Albumin Globulin Albumin/Globulin Ratio Plasma Lactate 6.9 H* Urine Source Urine Color Urine Turbidity Urine pH Ur Specific [place] Urine Protein Ur Glucose (Stick) Ur Ketones (Stick) Urine Blood Urine Nitrite Urine Bilirubin Urobilinogen Dipstick Urine Leukocytes Urine WBC (Auto) Urine RBC (Auto) U Epithel Cells (Auto) Urine Bacteria (Auto) 10/07/19 05:02 WBC RBC Hgb Hct MCV MCH MCHC RDW Std Deviation Plt Count MPV Immature Gran % (Auto) Neut % (Auto) Lymph % (Auto) Lipscomb % (Auto) Eos % (Auto) Baso % (Auto) Immature Gran # (Auto) Neut # (Auto) Lymph # (Auto) Lipscomb # (Auto) Eos # (Auto) Baso # (Auto) PT INR PTT (Actin FS) Sodium Potassium Chloride Carbon Dioxide Anion Gap BUN Creatinine Estimated GFR/1.73 m2 BUN/Creatinine Ratio Glucose POC Glucose Calculated Osmolality Calcium Total Bilirubin AST ALT Alkaline Phosphatase Creatine Kinase Troponin T Total Protein Albumin Globulin Albumin/Globulin Ratio Plasma Lactate Urine Source CLEAN CATCH Urine Color YELLOW Urine Turbidity CLEAR Urine pH 5.5 Ur Specific [place] 1.025 Urine Protein 30 A Ur Glucose (Stick) >1000 A Ur Ketones (Stick) TRACE A Urine Blood MODERATE A Urine Nitrite NEGATIVE Urine Bilirubin NEGATIVE Urobilinogen Dipstick NORMAL Urine Leukocytes MODERATE A Urine WBC (Auto) 20-40 A Urine RBC (Auto) TNTC A U Epithel Cells (Auto) <10 Urine Bacteria (Auto) 1+ Orders Category Date Time Status Cardiac Monitoring DIRECTED Care 10/07/19 03:05 Active IV Insertion ORDERED Care 10/07/19 03:05 Active Notify MD of + Sepsis Screen NOW Care 10/07/19 03:05 Active Notify Physician As Ordered Care 10/07/19 03:05 Active cxr [CHEST-1 VIEW] [RAD] Stat Exams 10/07/19 03:01 Taken BLOOD CULTURE [BLDCUL] Stat Lab 10/07/19 03:53 Results CBC WITH ELECTRONIC DIFF [HEME] Stat Lab 10/07/19 03:12 Completed CK PROFILE [SP CHEM] Stat Lab 10/07/19 03:12 Completed COMPREHENSIVE METABOLIC PANEL [CHEM] Stat Lab 10/07/19 03:12 Completed INFLUENZA SCREEN A/B Stat Lab 10/07/19 04:25 Completed LACTATE, PLASMA [CHEM] Lab 10/07/19 06:15 Uncollected LACTATE, PLASMA [CHEM] Lab 10/07/19 09:15 Uncollected LACTATE, PLASMA [CHEM] Q3H Lab 10/07/19 04:07 Completed PROTIME WITH INR [COAG] Stat Lab 10/07/19 03:12 Completed PTT [COAG] Stat Lab 10/07/19 03:12 Completed TROPONIN T Stat Lab 10/07/19 03:12 Completed URINALYSIS W/POSS RFLX CULT [URINALYSIS] Stat Lab 10/07/19 05:02 Completed URINE CULTURE [RM] Routine Lab 10/07/19 05:00 Received 0.9% Sodium Chloride Inj [Ns] 1,000 ml Med 10/07/19 03:00 Discontinued IV 999 mls/hr 0.9% Sodium Chloride Inj [Ns] 1,000 ml Med 10/07/19 05:00 Active IV 999 mls/hr Acetaminophen [Tylenol] Med 10/07/19 04:17 Discontinued 1,000 mg PO NOW ONE Dextrose 5%-0.45% NaCl Inj [D5 1/2 Ns] 250 ml Med 10/07/19 04:00 Active Norepinephrine [Levophed] 8 mg IV As Directed mls/hr Insulin Human Regular [Humulin R] Med 10/07/19 03:00 Discontinued 10 unit IV NOW ONE Piperacillin/Tazobactam [Zosyn] 3.375 gm Med 10/07/19 05:24 Discontinued 0.9% Sodium Chloride Inj [Ns] 50 ml IV NOW Ropinirole [Requip] Med 10/07/19 04:16 Discontinued 2 mg PO NOW ONE Vancomycin 1 gm/Ns Med 10/07/19 05:24 Discontinued 1 gm in 250 ml IV NOW Oxygen Device Stat Oth 10/07/19 03:05 Active EKG [EKG] Stat Ther 10/07/19 03:03 Ordered Transfer/Admit Order [TRANSFER] Routine Transfer 10/07/19 06:08 Ordered Result Diagrams: 10/07/19 03:12 10/07/19 03:12 - CONSULTS/PCP/HOSPITALIST Notification #1 *Consult/PCP/Hospitalist*: Dr Simmons Time Discussed: 06:05 Consult Disposition: Will see in ED, Admit Departure - Departure Date of Disposition Decision: 10/07/19 Time of Disposition Decision: 06:40 DIAGNOSIS: Renal insufficiency, Sepsis, Hyponatremia, Anemia, Uncontrolled diabetes mellitus, UTI (urinary tract infection), Pneumonia Disposition: ADMITTED INPATIENT 09 Certified Medical Emergency: Emergent Condition: Fair - Critical Care Note This patient required my direct & personal management of CC.: No Attestation - Physician/ YING Attestation Patient care was provided by Advanced Practice Provider:: No The physician spent face to face time with patient:: Yes Advanced Practice Provider documentation review:: Supervising physician onsite and consulted in the evaluation and care of this patient. The physician did have a face to face encounter with the patient. Sepsis: Tissue Perfusion Assmt - Physical Exam Assessment Date: 10/07/19 Time Assessment Initialized: 06:43 Vital Signs: Last Vital Signs Temp 99.6 F 10/07/19 02:55 Pulse 118 H 10/07/19 04:17 Resp 28 H 10/07/19 04:17 BP 83/45 10/07/19 04:17 Pulse Ox 96 10/07/19 04:17 Height 5 ft 9 in Weight 98.43 kg 10/07/19 06:43 see chart Lung Sounds:: lungs clear Heart Sounds:: Regular Capillary Refill Time: Less Than 2 Seconds Peripheral Pulse Evaluation:: radial (R): 4+, radial (L): 4+, dorsalis-pedis (R): 4+, dorsalis-pedis (L): 4+ Skin Exam:: flushed - Impression Impression:: Tissue Perfusion Adequate - Plan Plan:: See Orders
--- NOTE | 2019-10-07 06:48 | HISTORY AND PHYSICAL ---
PRIMARY CARE PHYSICIAN: Dr. Dinh. CHIEF COMPLAINT: Chills, confusion, and not feeling well x1 day. HISTORY OF PRESENTING ILLNESS: A 74-year-old male with a history of diabetes mellitus type 2, peripheral vascular disease, venous stasis ulcers, and pulmonary embolism was brought to the emergency department due to patient having a fall. Apparently, he was getting confused and having some chills earlier in the night. Patient was unable to get up and subsequently was brought to the emergency department. He was evaluated. He was suspected possibly to have a pneumonia on imaging, and possible UTI. The patient was also hypotensive and somewhat confused. There was suspicion of possible sepsis. The patient will require admission for further management. At the time of my examination, the patient was confused and most of the history is obtained from family members. However, family had denied patient having any fevers, nausea vomiting, diarrhea, chest pain, hemoptysis or any weight changes. PAST MEDICAL HISTORY: Includes diabetes mellitus type 2, peripheral vascular disease, pulmonary embolism, DVT, kidney stones, or venous stasis ulcers. PAST SURGICAL HISTORY: Back surgery. Cholecystectomy. ALLERGIES: No known drug allergies. CURRENT MEDICATIONS: 1. Albuterol nebs t.i.d. 2. Allopurinol 300 mg p.o. daily. 3. Alprazolam 1 mg p.o. at bedtime. 4. Eliquis 5 mg p.o. b.i.d. 5. Lexapro 20 mg p.o. daily. 6. Lasix 80 mg p.o. daily. 7. Castell 7.5 mg p.o. t.i.d. 8. Levothyroxine 275 mcg p.o. daily. 9. Metformin 500 mg p.o. b.i.d. 10. Omeprazole 40 mg p.o. daily. 11. Requip 2 mg p.o. at bedtime. 12. Januvia 100 mg p.o. daily. 13. Spironolactone HCT 25/25 1 p.o. b.i.d. 14. Flomax 0.4 mg p.o. at bedtime. SOCIAL HISTORY: He is a former smoker. History of alcohol use in the past. No history of drug use. FAMILY HISTORY: Positive for coronary disease in father. REVIEW OF SYSTEMS: Review of Systems is limited, most of the 14 point review of system was obtained from family members. PHYSICAL EXAMINATION: GENERAL: The patient is resting comfortably without any respiratory distress. VITAL SIGNS: Temperature 101.9 degrees, pulse 117, respirations 20, and blood pressure 109/62. HEENT: Atraumatic, normocephalic. PERRLA. NECK: No masses. CHEST: Bibasilar rales. CARDIOVASCULAR: Regular rate and rhythm. ABDOMEN: Soft. Positive bowel sounds. EXTREMITIES: There is +1 edema, and moderate erythema noted. : No bladder distention. SKIN: Warm. LABORATORIES AND STUDIES: WBC 17.49, hemoglobin 9.6, hematocrit 30.5, and platelets 123,000. Sodium 129, potassium 4.5, chloride 89, CO2 17, BUN is 58, and creatinine is 2.4. Glucose is 540. Plasma lactate is 6.9. ASSESSMENT: This is a 74-year-old male with a history of diabetes mellitus type 2, peripheral vascular disease, DVT, and PE who had presented to emergency department after he had a fall. Patient was unable to get up. He was having some chills at home. The patient was evaluated in the emergency department. He was somewhat confused and hypotensive, and had a fever. It was suspected possibly he had pneumonia, UTI and probable sepsis. Subsequently, he will require admission for further management. 1. Suspected pneumonia. 2. Probable urinary tract infection. 3. Sepsis with hypotension, altered mental status and white count. 4. Diabetes mellitus type 2 with hyperglycemia. 5. Acute kidney injury. PLAN: 1. We will admit patient to ICU. 2. We will check blood cultures, urine cultures, and start patient on IV antibiotics. 3. We will continue with IV fluids. 4. We will monitor blood glucose, and put patient on sliding scale insulin regimen. 5. Monitor renal function closely. 6. We will put patient on DVT prophylaxis with heparin. 7. The patient's condition is guarded. 8. We will continue to follow and reassess. Make further recommendation based on patient's clinical course. cc: Fidel Simmons MD MTDD
--- NOTE | 2019-10-07 07:02 | Diag Imaging Result Doc PS360 ---
CHEST-1 VIEW - 10/07/2019 INDICATION: fever COMPARISON: 05/30/2019 FINDINGS: Lung volumes are severely low. Stable cardiomegaly and mild pulmonary vascular congestion. Stable patchy atelectasis in the lung bases. No new infiltrates. IMPRESSION: Nonspecific findings. No change from prior. Electronically signed by Lito Larry 10/07/2019 6:59 AM
--- NOTE | 2019-10-07 07:02 | EKG Report ---
Test Performed on : 10/07/2019 04:41:58 AM Test Reason : weakness Blood Pressure : / mmHG Vent. Rate : 116 BPM Atrial Rate : 116 BPM P-R Int : 180 ms QRS Dur : 088 ms QT Int : 358 ms P-R-T Axes : 015 040 031 degrees QTc Int : 497 ms Sinus tachycardia. Cannot rule out Anterior infarct , age undetermined Abnormal ECG When compared with ECG of 27-MAY-2019 17:20, No significant change was found Unconfirmed Result
[2019-10-07] MEDS ORDERED: FLOMAX PO PRN (07:15)
[2019-10-07] MEDS ORDERED: HUMULIN R SUBQ SCH ×2 (07:15→07:53)
[2019-10-07] MEDS ORDERED: ZOFRAN IV PRN (07:15)
[2019-10-07] MEDS ORDERED: LANTUS INSULIN SUBQ ONE (07:52)
[2019-10-07] MEDS: PRILOSEC PO SCH (08:19)
[2019-10-07] MEDS: DUONEB (A & A) INH PRN ×4 (08:20→19:24)
[2019-10-07] MEDS ORDERED: ELIQUIS PO SCH (09:00)
[2019-10-07] MEDS ORDERED: SYNTHROID PO SCH (09:00)
[2019-10-07] MEDS: ZYLOPRIM PO SCH (09:06)
[2019-10-07] MEDS: VITAMIN D PO SCH (09:06)
[2019-10-07] MEDS: LEXAPRO PO SCH (09:07)
[2019-10-07] MEDS: VITAMIN B-12 PO SCH (09:07)
--- NOTE | 2019-10-07 09:32 | PROGRESS NOTE ---
DATE: 10/07/2019 SUBJECTIVE: Mr. Merchant, who has severe venous stasis in both legs after DVT in the left leg and pulmonary embolism has diabetes and history of multiple kidney stones. Last night he fell at home and was brought here, was found to be with sepsis and severe hyperglycemia with possible diabetic ketoacidosis. He is on sliding scale. We have given him Lantus insulin. However, we are keeping him on high dose of sliding scale. He is on IV Unasyn, as well as Levophed for severe hypotension. He is stuporous. There is some inflammation in the left leg. Urinalysis reveals presence of UTI and he has leukocytosis. Lactic acid level is high. He is on sepsis protocol. We will continue the IV antibiotics, as well as Levophed. Give him morphine, gave him Lovenox in place of Eliquis, and IV Synthroid in place of levothyroxine by mouth as he is somewhat stuporous and there is a danger of aspiration at the present time. I will also ask for ID consult with Dr. Engel and tax record clerk consult with Dr. Adam for sepsis hypotension. cc: MD Fidel Knutson MD
[2019-10-07] MEDS ORDERED: D50W SYRINGE IV PRN (10:03)
[2019-10-07] MEDS ORDERED: MAGNESIUM SULFATE 2 GM/S.W.I. 2 GM/50 ML IVPB IV PRN (10:05)
[2019-10-07] MEDS ORDERED: POTASSIUM CHLORIDE 20 MEQ/SWI 40 MEQ/200 ML IVPB IV PRN (10:05)
[2019-10-07] MEDS ORDERED: SODIUM PHOSPHATE 30 MMOL in D5W 250 ML IV PRN (10:05)
[2019-10-07] MEDS: LOVENOX SUBQ SCH ×2 (10:13→21:59)
[2019-10-07] MEDS: HUMULIN R 100 UNIT in NS 100 ML IV SCH ×2 (10:45→21:59)
[2019-10-07 11:00] LABS: URINE SOURCE CATH
[2019-10-07] MEDS ORDERED: ZOSYN 3.375 GM in NS 50 ML IV SCH (11:00)
[2019-10-07 11:07] LABS: CALCIUM 8.6 mg/dL (8.8-10.2); CREATININE 2.3 mg/dL (0.7-1.2); MAGNESIUM 1.9 mg/dL (1.5-2.7); PHOSPHORUS 3.3 mg/dL (2.7-4.5); POTASSIUM 4.5 mmol/L (3.5-5.1)
[2019-10-07 11:09] LABS: BILIRUBIN URINE NEGATIVE (NEGATIVE); BLOOD URINE MODERATE (NEGATIVE); COLOR YELLOW; GLUCOSE URINE >1000 mg/dL (NEGATIVE); KETONE URINE NEGATIVE (NEGATIVE); LEUKOCYTES URINE NEGATIVE (NEGATIVE); NITRITE URINE NEGATIVE (NEGATIVE); PROTEIN URINE TRACE mg/dL (NEGATIVE); SP GRAVITY URINE 1.019; TURBIDITY URINE CLEAR (CLEAR); UROBILINOGEN URINE NORMAL (NORMAL)
--- NOTE | 2019-10-07 11:09 | INFECTIOUS DISEASE CONSULT REP ---
DATE: 10/07/2019 CONCLUSION: The patient is admitted to the hospital in a septic state. I think this is due to a urinary tract infection. The patient may well have an associated bacteremia. RECOMMENDATIONS: I have discontinued Zosyn, and placed the patient on cefepime. I have ordered a portable ultrasound of the kidneys also. DISCUSSION: The patient is unable to provide a history. It was taken from the family and from information in the computer. The patient had been having, at home, chills and confusion. He fell on the floor also. His CBC shows a white blood cell count of 17,490, hemoglobin 9.6, platelet count 123,000. Creatinine is 2.4. GFR is 27. Liver function studies are normal. Urinalysis showed white cells and bacteria. Blood and urine cultures are pending. The influenza screen was negative. The patient's chest x-ray showed patchy atelectasis and pulmonary venous congestion. The patient has decreased hearing. He recently was having urinary frequency and right flank pain. REVIEW OF SYSTEMS: I was unable to obtain this from the patient. His said that normally, his vision is good, but he has decreased hearing. She also said that he had not been complaining of chest pain or abdominal pain or having diarrhea. She did say that he has been losing weight. PREVIOUS HOSPITALIZATIONS AND OPERATIONS: He has had surgery for renal calculi. He has also had lithotripsy for them. He has had medication injected into his back. He has had cholecystectomy and hemorrhoid operation. He had a deep venous thrombosis in the leg, which resulted in the patient having pulmonary emboli. MEDICAL DISEASES: Positive for diabetes mellitus, deep vein thrombosis, pulmonary emboli. The patient also had rectal bleeding, which the said was due to scar tissue where he had previously had hemorrhoid surgery. INFECTIOUS DISEASE HISTORY: Positive for pneumonia and UTI. FAMILY HISTORY: Positive for myocardial infarction, hypertension, cancer, and bronchiectasis. SOCIAL HISTORY: The patient lives in [place]. He is . He does not have any pets at home. He does not smoke cigarettes, drink alcoholic beverages, or abuse drugs. He previously though years ago, did smoke cigarettes and drink alcoholic beverages. He has no history of drug abuse. PHYSICAL EXAMINATION: Vital Signs: Temperature is 101 degrees, pulse 105, respirations 20, blood pressure 130/54. The patient weighs 260 pounds. General: This is an ill-appearing, elderly male. He was very lethargic. HEENT: No drainage was noted from the nose or ears. He had decreased hearing, and when he did talk, it was very hard for me to understand him. Neck: No meningismus. Lungs: Clear to auscultation. Cardiovascular: Heart rate, for the most part, was regular. There did appear to be PVCs occurring. Abdomen and Flanks: The patient had tenderness in the right costovertebral angle area. He also had tenderness in the middle part of the right abdomen. Neurologic: The patient was lethargic. He did follow request to move his extremities, however. There was no tremor. Integument: No rash. Thank you for the consult. cc: MD Fidel Thomas MD
[2019-10-07 11:11] LABS: UR EPITHELIAL CELLS <10 /HPF (<10); URINE BACTERIA NEGATIVE /HPF; URINE RBC <10 /HPF (<10); URINE WBC <10 /HPF (<10)
[2019-10-07] MEDS: MAXIPIME 1 GM in NS 50 ML IV SCH ×2 (11:16→22:00)
[2019-10-07] MEDS: POTASSIUM CHLORIDE 20 MEQ/SWI 20 MEQ/100 ML IVPB IV PRN ×2 (11:57→17:55)
[2019-10-07 13:25] LABS: I-STAT BE -3 mmoll (-2-3); I-STAT GLUCOSE 462 mg/dL (70-105); I-STAT HEMOGLOBIN 10.9 g/dL (11.5-17.5); I-STAT K 4.1 mmoll (3.5-4.9); I-STAT SODIUM 135 mmoll (138-146); I-STAT TCO2 22 mmoll (23-27); I-STAT pH 7.433 (7.350-7.450)
[2019-10-07 15:20] LABS: CALCIUM 8.6 mg/dL (8.8-10.2); POTASSIUM 4.4 mmol/L (3.5-5.1)
[2019-10-07] MEDS: MORPHINE IV PRN ×2 (15:33→22:26)
[2019-10-07] MEDS ORDERED: D5W 1,000 ML IV SCH (16:00)
--- NOTE | 2019-10-07 16:05 | PROGRESS NOTE ---
DATE: 10/07/2019 SUBJECTIVE: Mr. Merchant is doing better. He is much more alert. OBJECTIVE: Respiratory: Lungs sound much clearer. Cardiovascular: Heart sounds are normal. ASSESSMENT AND PLAN: Dr. Engel has ordered cefepime at the present time and we will be continuing most of the other medications. I am going to put him on clear liquids tonight. He is on an insulin drip. cc: MD Fidel Knutson MD MTDD
--- NOTE | 2019-10-07 18:06 | Diag Imaging Result Doc PS360 ---
EXAM: US RENAL 2 (RETROPER) COMPLETE - 10/07/2019 HISTORY: UTI TECHNIQUE: Bilateral renal ultrasound COMPARISON: 04/04/2019 FINDINGS: The right kidney measures 10.6 x 5.2 x 6 cm in size, and has cortical thickness of 1 cm. The left kidney measures 9.8 x 6.8 x 7.5 cm in size, and has cortical thickness of 0.9 cm. There is an apparent 1-1.4 cm stone in the right kidney. There is a questionable stone in the left kidney. There is no renal mass or hydronephrosis identified. The urinary bladder is decompressed by Black catheter and is not evaluated. IMPRESSION: Apparent 1-1.4 cm stone in right kidney. Questionable stone in left kidney. No hydronephrosis. Electronically signed by Arron Victor 10/07/2019 6:03 PM
[2019-10-07 18:09] LABS: CALCIUM 8.9 mg/dL (8.8-10.2); PHOSPHORUS 1.6 mg/dL (2.7-4.5); POTASSIUM 3.9 mmol/L (3.5-5.1)
--- NOTE | 2019-10-07 19:34 | PULMONOLOGY CONSULTATION ---
DATE: 10/07/2019 REASON FOR CONSULTATION: Sepsis with hypotension. HISTORY OF PRESENT ILLNESS: Mr. Merchant is a 74-year-old with a history of recurrent nephrolithiasis who was doing well yesterday until the evening when he developed chills. He went to bed and in the night became confused and fell in the bathroom and was too weak to get up. The patient was brought to the emergency room. His temperature was 101.9 degrees. Chest x-ray revealed stable atelectasis/scarring in the lung bases compared to 05/30/2019. His blood pressure was low and he has been initiated on fluids and Levophed. His sugar is out of control and he is currently on insulin drip. PAST MEDICAL HISTORY: 1. Greater than 30 pack-year history for tobacco. 2. Episode of cirrhosis with ascites in 2018. 3. Status post IVC filter placement. 4. Diverticulosis. 5. Hemorrhoids. 6. Recurrent nephrolithiasis. 7. Status post cholecystectomy. 8. Hypogonadism. 9. Hypothyroidism. 10. Anxiety/depressive disorder. 11. Hypertension. 12. History of back surgery. 13. Chronic renal insufficiency. SOCIAL HISTORY: The patient is . He has a greater than [id number] history for tobacco but has been a nonsmoker for 20 years. FAMILY HISTORY: Noncontributory to current presentation. REVIEW OF SYSTEMS: Limited. Patient is arousable to alert but quickly drifts off back to sleep and his he is not completely coherent. OBJECTIVE: Maximum temperature this hospitalization is 101.9 degrees at 2:50 this morning. Blood pressure 126/60, heart rate 102, respiratory rate 22, oxygen saturation 96% on 5 L per nasal cannula.HEENT: Pupils are equal and reactive. Oropharynx appears clear. Neck: Supple. Chest: Reveals crackles in the lung bases. Cardiac: S1-S2. Abdomen: Soft with diminished bowel sounds. Extremities: Reveal 1+ peripheral edema. LABORATORIES: White blood count 17.49, hemoglobin 9.6, platelet count 123,000. Sodium 138, potassium 4.4, chloride 104, bicarbonate 20, BUN 51, creatinine 2.0 with a glucose of 336. Urinalysis reveals moderate amount of blood, glucose greater than 1000, trace ketones with 20 to 40 white blood cells per high-power field and too numerous to count red blood cells. IMPRESSION: A 74-year-old with presumptive chronic obstructive pulmonary disease, acute hypoxemic respiratory failure, urinary tract infection, hematuria, with septic shock requiring vasopressors. His blood pressure is improving. His urine output is improving. RECOMMENDATIONS: 1. Continue oxygen for hypoxemic respiratory failure. 2. Continue current resuscitation fluid status. 3. The patient is currently on Eliquis and Lovenox. I will discontinue Eliquis while he is on the Lovenox. 4. Agree with renal ultrasound. 5. Continue ICU monitoring and wean oxygen and vasopressors as tolerated. cc: MD Fidel Dewitt MD
[2019-10-07] MEDS: REQUIP PO SCH (22:08)
[2019-10-07] MEDS: XANAX PO SCH (22:09)
[2019-10-07 22:16] LABS: CALCIUM 8.9 mg/dL (8.8-10.2); CREATININE 1.8 mg/dL (0.7-1.2); MAGNESIUM 2.1 mg/dL (1.5-2.7); PHOSPHORUS 1.5 mg/dL (2.7-4.5); POTASSIUM 3.7 mmol/L (3.5-5.1)
[2019-10-08] MEDS: MORPHINE IV PRN ×6 (02:01→22:29)
[2019-10-08] MEDS: POTASSIUM CHLORIDE 20 MEQ/SWI 20 MEQ/100 ML IVPB IV PRN (03:56)
[2019-10-08 05:52] LABS: CALCIUM 8.7 mg/dL (8.8-10.2); CREATININE 1.5 mg/dL (0.7-1.2); MAGNESIUM 2.1 mg/dL (1.5-2.7)
[2019-10-08 06:32] LABS: BASO# 0.03 X1000 (0.0-0.2); BASO% 0.2 % (0.0-0.8); EOS# 0.18 X1000 (0.0-0.7); EOS% 1.3 % (0.0-10.0); HEMATOCRIT 25.3 % (42.0-52.0); HEMOGLOBIN 7.7 g/dL (14.0-18.0); IMM GRAN# 0.05 X1000 (0.0-0.04); IMM GRAN% 0.4 % (0.0-0.5); LYMPH# 1.61 X1000 (1.2-3.4); LYMPH% 11.8 % (20.5-51.1); MCH 33.9 PG (27-31); MCHC 30.4 g/dL (33-37); MCV 111.5 FL (81-99); MONO# 1.03 X1000 (0.11-0.59); MONO% 7.5 % (1.7-9.3); MPV 9.5 FL (7.4-10.4); NEUT# 10.78 X1000 (1.4-6.5); NEUT% 78.8 % (42.2-75.2); PLT 145 X1000 (130-400); RBC 2.27 XMIL (4.7-6.1); RDW 17.3 % (11.5-14.5); WBC 13.68 X1000 (4.8-10.8)
[2019-10-08] MEDS: SODIUM CHLORIDE 0.9% INJ PRN (06:36)
[2019-10-08] MEDS: SYNTHROID IV SCH (06:36)
[2019-10-08] MEDS: PRILOSEC PO SCH (06:36)
[2019-10-08 08:02] LABS: ALLEN TEST YES; BE -2.7 mmoll (-3.0-3.0); BLOOD TYPE ARTERIAL; HCO3-(ACT) 22.8 mmoll (20.0-26.0); METHB 1.1 % (0.0-1.5); O2(CT) 11.2 mL/dL (15.0-23.0); PCO2(98.6) 33 mmHg (35-45); PO2(98.6) 80 mmHg (60-100); SAMPLE BLOOD; SAO2 97.6 % (95.0-100.0); THB 8.3 g/dL (11.5-17.4); pH(98.6) 7.42 (7.35-7.45)
[2019-10-08 08:04] LABS: MODALITY CANNULA
[2019-10-08 08:11] LABS: ANISOCYTOSIS 1+; BANDS 2 % (0-1); HYPOCHROM 1+; LYMPHS 12 % (21-51); MONO 12 % (1-9); SEGS 74 % (42-75)
--- NOTE | 2019-10-08 08:36 | Diag Imaging Result Doc PS360 ---
CHEST-PORTABLE - 10/08/2019 INDICATION: abnormal exam COMPARISON: 10/07/2019 FINDINGS: Lung volumes are somewhat improved. There is significant improvement in the patchy bibasilar infiltrates or atelectasis. Stable borderline cardiomegaly. IMPRESSION: Moderate improvement. Electronically signed by Lito Larry 10/08/2019 8:34 AM
[2019-10-08] MEDS ORDERED: MAXIPIME 2 GM in NS 50 ML IV SCH (08:52)
[2019-10-08] MEDS: VITAMIN B-12 PO SCH (09:15)
[2019-10-08] MEDS: ZYLOPRIM PO SCH (09:15)
[2019-10-08] MEDS: ELIQUIS PO SCH ×2 (09:16→20:11)
[2019-10-08] MEDS: LEXAPRO PO SCH (09:16)
[2019-10-08] MEDS: VITAMIN D PO SCH (09:16)
--- NOTE | 2019-10-08 09:16 | PROGRESS NOTE ---
DATE: 10/08/2019 Mr. Merchant is doing well. He is alert, oriented. We will change him to diabetic diet as he has stone in the right kidney. Overall condition is unchanged. We will continue to watch him in ICU as he is on Levophed. -4 cc: Khurram Dinh MD
--- NOTE | 2019-10-08 09:17 | PROGRESS NOTE ---
DATE: 10/08/2019 Mr. Morrow is doing fairly well. He is more alert. He can swallow well. We will change him to diabetic diet. He has a stone in the right kidney. He has sepsis. We are going to repeat ABGs. Blood sugars are under fair control. cc: Khurram Dinh MD
[2019-10-08] MEDS: MAXIPIME 2 GM/NS 2 GM/100 ML IVPB IV SCH ×2 (10:03→22:29)
[2019-10-08 10:59] LABS: CALCIUM 8.4 mg/dL (8.8-10.2); CREATININE 1.5 mg/dL (0.7-1.2); POTASSIUM 4.1 mmol/L (3.5-5.1)
--- NOTE | 2019-10-08 11:51 | INFECTIOUS DISEASE PROGRESS NO ---
DATE: 10/08/2019 PRESENT ILLNESS: The patient appears to have a urinary tract infection. There may well be an associated bacteremia. The patient does have renal calculi also. MEDICATIONS: The patient is on cefepime. PHYSICAL EXAMINATION: Vital Signs: Temperature is 98.2 degrees, pulse 93, respirations 12, blood pressure 115/76. Generally: In general, the patient looks much better. He is alert and talking and coherent. Head/eyes/ears/nose/throat: He can hear my spoken words and see near objects. He does not have any white coating of his tongue. Neck: No pain with movement. Lungs: Clear to auscultation. Cardiovascular: Heart rate is regular. Abdomen: Abdomen and flanks are soft and nontender. Neurologic: The patient is alert. He can move his extremities. There is no tremor. LAB AND X-RAY: [place] [address], hemoglobin 7.7, and platelet count 145,000. Blood gases show a pH of 7.42, a PO2 of 80, and a pCO2 of 33. Creatinine is 1.5. GFR is 46. Blood and urine cultures are pending. Swab for influenza is negative. Renal ultrasound showed stones present in both kidneys, but there is no hydronephrosis present. Chest x-ray shows improved bibasilar infiltrates/atelectasis. ASSESSMENT AND PLAN: I think the patient has a urinary tract infection and may well have an associated bacteremia. I think the chest x-ray findings are due more to atelectasis than infection. I am increasing the patient's cefepime dose because his kidney function is improving. I think that if the patient indeed does have urinary tract infection, he will need to have the stones and each kidney taken care of because it would be impossible to sterilize the stone with just antibiotics. When the patient is over this acute episode, I think he will need lithotripsy to break up the stones and hopefully get rid of them. COMORBIDITIES: The patient is elderly. He does have renal calculi. He also is a diabetic. cc: MD Khurram Thomas MD
[2019-10-08 14:58] LABS: CALCIUM 8.6 mg/dL (8.8-10.2); CREATININE 1.3 mg/dL (0.7-1.2); POTASSIUM 4.5 mmol/L (3.5-5.1)
[2019-10-08] MEDS: HUMALOG SUBQ SCH ×2 (15:33→20:13)
[2019-10-08] MEDS: DUONEB (A & A) INH PRN (16:13)
--- NOTE | 2019-10-08 16:48 | PULMONOLOGY PROGRESS NOTE ---
DATE: 10/08/2019 SUBJECTIVE: The patient is awake, alert, and conversant. He is weak but is able to feed himself. OBJECTIVE: Vital Signs: Maximum temperature in the last 24 hours is 100.4 degrees. Blood pressure 116/54, heart rate 95, respiratory rate 13, oxygen saturation 94% on 3 L per nasal cannula. He is on a vasopressor but it is being tapered off. HEENT: Pupils are equal and reactive. Oropharynx appears clear. Neck: Supple. Chest: Reveals crackles in both lung bases. Cardiac exam: S1, S2. Abdomen: Soft. Extremities: Reveal +1 edema. LABORATORIES: Chest x-ray reveals decrease in basilar atelectasis/infiltrates. Urine culture is growing a gram-negative trace. White blood count 13.7, hemoglobin 7.7, platelet count 145,000. Arterial blood gas reveals a pH of 7.42, pCO2 of 33, PO2 of 80 on 4 L per nasal cannula. IMPRESSIONS: A 74-year-old with: 1. Presumptive chronic obstructive pulmonary disease. 2. Acute hypoxemic respiratory failure. 3. Septic shock. 4. Urinary tract infection. 5. Encephalopathy with improvement. PLAN: 1. Continue to wean vasopressors as tolerated. 2. Continue antibiotics per Infectious Disease. 3. Continue bronchial hygiene. 4. Agree with transitioning patient back to [facility] now that oral intake has improved. cc: MD Khurram Dewitt MD
[2019-10-08] MEDS: 1/2 NS 1,000 ML IV SCH (17:51)
[2019-10-08] MEDS: XANAX PO SCH (20:11)
[2019-10-08] MEDS: REQUIP PO SCH (20:12)
[2019-10-09] MEDS: MORPHINE IV PRN ×7 (01:18→22:52)
[2019-10-09] MEDS: HUMALOG SUBQ SCH ×4 (06:31→20:50)
[2019-10-09] MEDS: SYNTHROID IV SCH (06:45)
[2019-10-09] MEDS: PRILOSEC PO SCH (06:45)
[2019-10-09] MEDS: SODIUM CHLORIDE 0.9% INJ PRN (06:46)
--- NOTE | 2019-10-09 10:08 | PROGRESS NOTE ---
DATE: 10/09/2019 SUBJECTIVE: The patient says he is feeling better. Does not really have much in the way of complaints, except for his chronic back and left hip pain. He is in with presumptive COPD, acute hypoxic respiratory failure, septic shock, urinary tract infection, encephalopathy. His was in the room and also talked with me there. The patient seems a little confused at times, but is alert. He was just moved out of the unit last night. He had been in the unit because of hypotension. He is growing Klebsiella pneumoniae in the urine and is being treated for that. Infectious Disease and Pulmonary are also seeing him. OBJECTIVE: Blood pressure is 121/67, respirations 16, pulse 91, temperature 97.6 degrees Fahrenheit. ASSESSMENT: 1. Hypoxia, respiratory arrest. 2. Chronic obstructive pulmonary disease. 3. Urinary tract infection. 4. Kidney stones. PLAN: Continue to support. The patient is improving. cc: MD Khurram Ceron Jr, MD
[2019-10-09] MEDS: MAXIPIME 2 GM/NS 2 GM/100 ML IVPB IV SCH ×2 (10:19→22:00)
[2019-10-09] MEDS: VITAMIN B-12 PO SCH (10:20)
[2019-10-09] MEDS: ELIQUIS PO SCH ×2 (10:20→20:50)
[2019-10-09] MEDS: VITAMIN D PO SCH (10:20)
[2019-10-09] MEDS: LEXAPRO PO SCH (10:20)
[2019-10-09] MEDS: ZYLOPRIM PO SCH (10:20)
--- NOTE | 2019-10-09 19:52 | PULMONOLOGY PROGRESS NOTE ---
DATE: 10/09/2019 SUBJECTIVE: The patient is awake, alert, and conversant. He responds to questions more quickly than yesterday morning. OBJECTIVE: The patient has been afebrile for the last 24 hours. Blood pressure 112/60, heart rate 97, respiratory rate 19, oxygen saturation 98% on 3 L per nasal cannula. HEENT: Pupils are equal and reactive. Oropharynx appears clear. Neck: Supple. Chest: Reveals crackles in the lung bases. Cardiac: S1-S2. Abdomen: Obese and soft with good bowel sounds. Extremities: Reveal trace edema. LABORATORIES: No chemistry or CBC today. Microbiology reveals an ESBL negative Klebsiella pneumonia in his urine culture. IMPRESSION: A 74-year-old with 1. Acute hypoxemic respiratory failure. 2. Chronic obstructive pulmonary disease. 3. Urinary tract infection. 4. Septic shock which has resolved. 5. Encephalopathy with daily improvement. PLAN: 1. Continue antibiotics per Infectious Disease. 2. Continue bronchial hygiene. 3. Wean oxygen as tolerated. 4. Hopefully patient can be discharged by the end of the week. He may require additional evaluation for nephrolithiasis. cc: MD Khurram Dewitt MD
[2019-10-09] MEDS: XANAX PO SCH (20:48)
[2019-10-09] MEDS: REQUIP PO SCH (20:48)
[2019-10-09] MEDS: TYLENOL PO PRN (20:48)
[2019-10-10] MEDS: 1/2 NS 1,000 ML IV SCH (04:16)
[2019-10-10] MEDS: SODIUM CHLORIDE 0.9% INJ PRN (06:37)
[2019-10-10] MEDS: SYNTHROID IV SCH (06:38)
[2019-10-10] MEDS: PRILOSEC PO SCH (06:39)
[2019-10-10] MEDS: MORPHINE IV PRN ×4 (06:46→20:20)
[2019-10-10] MEDS: HUMALOG SUBQ SCH ×4 (07:10→20:20)
[2019-10-10] MEDS: LEXAPRO PO SCH (09:13)
[2019-10-10] MEDS: VITAMIN D PO SCH (09:13)
[2019-10-10] MEDS: VITAMIN B-12 PO SCH (09:13)
[2019-10-10] MEDS: ZYLOPRIM PO SCH (09:13)
[2019-10-10] MEDS: ELIQUIS PO SCH ×2 (09:13→20:20)
[2019-10-10] MEDS: MAXIPIME 2 GM/NS 2 GM/100 ML IVPB IV SCH (09:14)
--- NOTE | 2019-10-10 10:48 | PROGRESS NOTE ---
DATE: 10/10/2019 Mr. Merchant's white count has come down to 13.68. His blood sugars are being checked. They are staying in between 200 to 300. Last one was 292 this morning. His electrolyte status is improved. BUN is 33, creatinine 1.3. He has Klebsiella pneumonia isolated, sensitive to cephalosporins. He is on cefepime. We are going to continue the current management on him, put him on Lantus insulin 25 units daily. cc: Khurram Dinh MD
[2019-10-10] MEDS: LANTUS INSULIN SUBQ SCH (11:25)
[2019-10-10] MEDS: ROCEPHIN 2 GM in NS 50 ML IV SCH (13:45)
--- NOTE | 2019-10-10 14:30 | Diag Imaging Result Doc PS360 ---
EXAM: KUB ABDOMEN HISTORY: Evaluation of nephrolithiasis TECHNIQUE: Single view COMPARISON: 09/24/2017 FINDINGS: There are bilateral renal stones. No definite change compared to the prior exam. No bowel obstruction. No organomegaly. The gallbladder has been removed. There is an inferior vena caval filter overlies the L2 and L3 vertebra. IMPRESSION: Bilateral renal stones Electronically signed by Pascual Finney 10/10/2019 2:28 PM
--- NOTE | 2019-10-10 14:43 | INFECTIOUS DISEASE PROGRESS NO ---
DATE: 10/10/2019 PRESENT ILLNESS: The patient has a Klebsiella urinary tract infection. Blood cultures remain negative. The patient does have renal calculi also. MEDICATIONS: I have switched the patient from cefepime to Rocephin. PHYSICAL EXAMINATION: Vital Signs: Temperature is 98 degrees, pulse 99, respirations 16, blood pressure 126/62. General: This is a somewhat ill-appearing elderly male. He still is a little bit confused, but overall, he is better than when he came in. Head/eyes/ears/nose/throat: He can hear my spoken words and see near objects. He does not have any white coating on his tongue. Neck: No pain with movement. Lungs: Clear to auscultation. Cardiovascular: Regular heart rate. Abdomen: Soft and not tender including bilateral flank areas. Neurologic: The patient is awake, sometimes he seems a little bit confused. He did move his extremities to request. LAB AND X-RAY: There is no new lab study or radiographic study. The patient's blood cultures are negative. The urine culture grew Klebsiella. ASSESSMENT AND PLAN: Patient has a Klebsiella urinary tract infection. Even though there were only 10 to 84942 colony-forming units per mL, I still think the urinary tract infection was the cause of the patient's illness. I have switched the patient to Rocephin. Some of the side effects of the antibiotic including rash and diarrhea have been explained to the patient who agrees with treatment. I have also put in a consult for urology to see the patient to set up lithotripsy because if the patient's stones in either kidney are infected, it will be very difficult to sterilize the stone with just an antibiotic and I think lithotripsy would be the better way to go. I plan to treat the patient for 2 weeks with antibiotics for his urinary tract infection. COMORBIDITIES: The patient is elderly. He has renal calculi and he is a diabetic. cc: MD Khurram Thomas MD
--- NOTE | 2019-10-10 15:09 | CONSULTATION ---
DATE OF CONSULTATION: 10/10/2019 CHIEF COMPLAINT: 1. Urinary tract infection. 2. Kidney stones. HISTORY OF PRESENT ILLNESS: Mr. Merchant is a 74-year-old who was brought to the emergency room on 10/07/2019 regarding confusion and a fall at home. The patient has a history of type 2 diabetes, peripheral vascular disease, venous stasis ulcers, and prior pulmonary embolism on anticoagulants. The patient presented to the emergency room with confusion and chills and a fall. The patient was evaluated and admitted for possible pneumonia versus urinary tract infection. The patient was hypotensive and significantly confused. The patient was admitted to the ICU for observation and ultimately has been transferred to the floor. Urology was consulted after a renal ultrasound was performed on 10/07 which showed kidney stones bilaterally with no evidence of obstruction. In talking with the patient, he is not a great historian but initially denied ever seeing a urologist before and after a thorough discussion, patient states that he has been seen by Dr. Hassan in [place] for many years now and last seen about 2 months ago. The patient has had multiple treatments for kidney stones in the past and states he has passed maybe 100 kidney stones himself spontaneously. He has had several surgeries previously for kidney stones, including ureteroscopy, ESWL, and open lithotomy many years ago. He denies any dysuria or hematuria. He states he is not having any problems emptying his bladder at home. He denies taking any medications for his prostate, but he is not sure if he does or not. The patient's urine culture currently growing Klebsiella, 10,000 to 20,000 CFU. He has an indwelling catheter in draining clear yellow urine. ALLERGIES: No known drug allergies. CURRENT MEDICATIONS: 1. Albuterol. 2. Allopurinol 300 mg p.o. 3. Xanax 1 mg p.o. at bedtime. 4. Eliquis 5 mg b.i.d. 5. Lexapro 20 mg p.o. daily. 6. Lasix 80 mg p.o. daily. 7. [place] 7.5 mg p.o. t.i.d. 8. Levothyroxine 250 mcg p.o. daily. 9. Metformin 500 mg p.o. b.i.d. 10. Omeprazole 40 mg p.o. daily. 11. Requip 2 mg p.o. at nighttime. 12. Januvia 100 mg p.o. daily. 13. Spironolactone/hydrochlorothiazide 25/25. 14. Flomax 0.4 mg daily. PAST MEDICAL HISTORY: 1. Type 2 diabetes. 2. Peripheral vascular disease. 3. Pulmonary embolism. 4. History of kidney stones. 5. Venous stasis ulcers. 6. BPH. 7. Diverticulosis. 8. Hypothyroidism. PAST SURGICAL HISTORY: 1. Cholecystectomy. 2. Back surgery. 3. IVC filter. 4. Ureteroscopy 5. Open lithotomy for kidney stones 6. Multiple extracorporal shockwave lithotripsy procedures. SOCIAL HISTORY: Former smoker, subsequently quit. Has used alcohol previously. Denies any illicit drug use. FAMILY HISTORY: Denies family history of malignancy. REVIEW OF SYSTEMS: A 12 point review of systems performed with all pertinent positives and negatives in HPI. PHYSICAL EXAMINATION: Vital Signs: Temperature 98.0 degrees, heart rate 99, blood pressure 126/62, oxygenation 96% on nasal cannula. General: No acute distress. Resting comfortably in bed. Alert and oriented to person, place, and time. HEENT: Normocephalic, atraumatic. Pupils equal, round, reactive to light. Neck: Trachea midline with no palpable masses. Respiratory: Good respiratory effort without audible wheezing or rales. Cardiovascular: Regular rate and rhythm. Evidence of stasis ulcers on the lower extremity with +1 pitting edema. Abdomen: Soft, nontender, nondistended. No palpable masses. Prior surgical incisions visualized. : No suprapubic tenderness. No CVA tenderness. The patient has evidence of phimosis with difficult to retract foreskin with urethral catheter in place draining clear yellow urine. Both testicles palpated with a small amount of fluid around his testicle. Nontender to palpation. Rectal: Digital rectal exam shows a small prostate with no significant enlargement. No palpable nodules or asymmetry. Neurologic: Gross motor and sensory intact. Skin: Evidence of lower extremity stasis ulcers with no obvious lesions otherwise. The patient does have some bruising overlying his right gluteal area. Musculoskeletal: Moving all extremities. LABS: The patient's creatinine on admission was 2.4 and has down trended to 1.3 yesterday. The patient's white blood cell count on the was 13.7, was 17.5 on admission. The patient's urinalysis showed moderate blood, 1+ bacteria, over 1,000 glucose, moderate leukocytes on initial evaluation, with less than 10 epithelial cells. MICROBIOLOGY: Urine culture growing Klebsiella pneumoniae 10,000 to 20,000. Blood cultures are negative. IMAGING: Renal ultrasound I reviewed from 10/07, which showed a possible stone in the lower portion of the right kidney and possible stone within the left kidney. No evidence of hydronephrosis or renal mass. ASSESSMENT AND PLAN: Mr. Merchant is a 74-year-old with type 2 diabetes, gout, anxiety, deep vein thrombosis, pulmonary embolism, peripheral vascular disease, venous stasis ulcers, hypothyroidism, chronic kidney disease, recurrent kidney stones, gastroesophageal reflux disease, and hypertension, who presents in consultation regarding confusion and likely urinary tract infection. Urinalysis and urine culture showed concern for infection. He grew 10,000 to 20,000 colony- forming units of Klebsiella. The patient had an ultrasound on admission which showed possible stone within the right kidney. The patient has a history of kidney stones, saying he has passed over 100 stones himself. He has followed with Dr. Hassan 2 months ago and may have seen others previously. The patient takes Flomax for his bladder and seems to be emptying without issue per his report. Uncertain what truly led to his episode of confusion. Patient still seems confused today on exam. I am not sure if he has some baseline dementia, but has been afebrile with most recent labs showing returning his renal function to a normal status as well as normalizing white blood cell count. In talking with him, I recommended obtaining an x-ray to assess for kidney stones. The patient had no hydronephrosis on his ultrasound and renal function seems to be stable for him. No obvious etiology for his symptom is seen. Would continue to monitor renal function. Labs are planned to be repeated tomorrow. Probably can take catheter out when the patient is ambulatory. Likely does not need to persist with catheter. Would obtain a PVR after catheter removal to ensure he is adequately emptying. We will continue to monitor from a urologic standpoint. Please call with questions or concerns. cc: MD Khurram Keating MD [facility]
[2019-10-10] MEDS: REQUIP PO SCH (20:20)
[2019-10-10] MEDS: XANAX PO SCH (20:20)
[2019-10-11] MEDS: MORPHINE IV PRN ×5 (06:35→22:17)
[2019-10-11] MEDS: SODIUM CHLORIDE 0.9% INJ PRN (06:35)
[2019-10-11] MEDS: PRILOSEC PO SCH (06:35)
[2019-10-11] MEDS: SYNTHROID IV SCH (06:35)
[2019-10-11] MEDS: HUMALOG SUBQ SCH ×4 (06:38→20:18)
[2019-10-11] MEDS: 1/2 NS 1,000 ML IV SCH ×3 (06:38→22:03)
[2019-10-11 07:43] LABS: BASO# 0.03 X1000 (0.0-0.2); BASO% 0.5 % (0.0-0.8); EOS# 0.22 X1000 (0.0-0.7); EOS% 3.3 % (0.0-10.0); HEMATOCRIT 27.4 % (42.0-52.0); HEMOGLOBIN 8.3 g/dL (14.0-18.0); IMM GRAN# 0.09 X1000 (0.0-0.04); IMM GRAN% 1.4 % (0.0-0.5); LYMPH# 1.12 X1000 (1.2-3.4); LYMPH% 16.8 % (20.5-51.1); MCH 33.2 PG (27-31); MCHC 30.3 g/dL (33-37); MCV 109.6 FL (81-99); MONO# 0.55 X1000 (0.11-0.59); MONO% 8.3 % (1.7-9.3); MPV 9.4 FL (7.4-10.4); NEUT# 4.65 X1000 (1.4-6.5); NEUT% 69.7 % (42.2-75.2); PLT 134 X1000 (130-400); RDW 16.3 % (11.5-14.5); WBC 6.66 X1000 (4.8-10.8)
[2019-10-11 08:06] LABS: AGAP 10; BUN 16 mg/dL (8-22); CALCIUM 8.7 mg/dL (8.8-10.2); CHLORIDE 105 mmol/L (98-107); COSMO 277; CREATININE 1.1 mg/dL (0.7-1.2); ESTIMATED GFR > 60; GLUCOSE 134 mg/dL (70-104); POTASSIUM 4.8 mmol/L (3.5-5.1); SODIUM 137 mmol/L (136-145); TCO2 22 mmol/L (25-35)
[2019-10-11 08:10] LABS: FREE T4 1.67 ng/dL (0.93-1.70)
[2019-10-11 08:25] LABS: TSH 12.09 uIUmL (0.27-4.20)
[2019-10-11] MEDS: VITAMIN B-12 PO SCH (09:20)
[2019-10-11] MEDS: LANTUS INSULIN SUBQ SCH (09:20)
[2019-10-11] MEDS: VITAMIN D PO SCH (09:20)
[2019-10-11] MEDS: LEXAPRO PO SCH (09:20)
[2019-10-11] MEDS: ZYLOPRIM PO SCH (09:20)
[2019-10-11] MEDS: ELIQUIS PO SCH ×2 (09:20→20:17)
--- NOTE | 2019-10-11 09:47 | PROGRESS NOTE ---
DATE: 10/11/2019 SUBJECTIVE: No acute events overnight. The patient's catheter has been draining well with 3.8 L recorded. Denies any flank or abdominal pain. The patient feels that he is less short of breath. The patient was able to have a bowel movement yesterday. He is actively eating breakfast this morning. Denies any nausea or vomiting. OBJECTIVE: Vital signs: Temperature 98.3 degrees, heart rate 85, blood pressure 107/63, oxygen saturation 99% on room air. General: No acute distress. Resting comfortably in bed. Alert and oriented x3. Respiratory: Good respiratory effort without audible wheezing or rales. Cardiovascular: Regular rate and rhythm. Abdomen: Soft, nontender, nondistended. : No suprapubic tenderness. No CVA tenderness. Urethral catheter in place draining clear yellow urine. LABS: White blood cell count 6.7, hemoglobin 8.3, hematocrit 27.4, platelets 134,000. Sodium 137, potassium 4.8, chloride 105, bicarb 22, BUN 16, creatinine 1.1, glucose 134, calcium 8.7. IMAGING: Abdominal x-ray performed yesterday which showed bilateral renal stones with largest stones seen within the right kidney measuring approximately 1 cm with 2 separate stones that large. In the left kidney there were several stones that appeared to be smaller. Total of at least 3 stones were seen. ASSESSMENT AND PLAN: Mr. Merchant is a 74-year-old with type 2 diabetes, peripheral vascular disease, history of pulmonary embolism, history of kidney stones, BPH, diverticulosis, and hypothyroidism who presents in consultation regarding urinary tract infection. The patient had a renal ultrasound on presentation, which showed stones present within bilateral kidneys. I performed a KUB yesterday which showed obvious stones in both kidneys with the largest stone burden seen in the right kidney. The patient denies any flank or abdominal pain. The patient's urine culture grew Klebsiella. Currently on culture specific antibiotics and followed by Infectious Disease. In talking with patient and his today, they have followed with Dr. Lockett in the past and the patient has been on Flomax for a number of years now. The patient's states that he has been having increased frequency and urgency to go to the bathroom and weakened stream. I recommended increasing his dose of Flomax to 2 pills daily. We will plan to start that later tonight and considerably try to remove his catheter tomorrow as long as he does well. The patient can follow up in Urology Clinic or follow-up with Dr. Lockett regarding his kidney stones. The patient has PSA checked regularly and was told recently that it was normal as well as have a KUB at his primary urologist office, which showed stable appearance of his kidney stones. We will continue to monitor from a urologic standpoint. Please call with questions or concerns. cc: MD Khurram Keating MD [facility]
--- NOTE | 2019-10-11 11:08 | PROGRESS NOTE ---
DATE: 10/11/2019 SUBJECTIVE: Mr. Merchant is doing better. His hemoglobin is down to 8.3. His sodium and potassium are normal. Blood sugar was 135 this morning. He has a bad UTI with sepsis and consult with Dr. Ordoñez for multiple kidney stones, however, he is being followed by Dr. Hassan in [place] and this is what he wants to do. Will continue with the current management. I appreciate Dr. Ordoñez to see him and follow him also. Will start physical therapy on him. -7 cc: Khurram Dinh MD
--- NOTE | 2019-10-11 12:00 | INFECTIOUS DISEASE PROGRESS NO ---
DATE: 10/11/2019 PRESENT ILLNESS: Patient has a Klebsiella urinary tract infection. The patient also unfortunately has renal calculi. MEDICATIONS: The patient is on Rocephin. Altogether, the patient has had a total of 4 days of treatment with antibiotics for his urinary tract infection. Currently, the patient is on Rocephin. PHYSICAL EXAMINATION: Vital Signs: Temperature is 98.3 degrees, pulse 85, respirations 14, blood pressure is 107/63. General: This is a somewhat ill-appearing, elderly male. He is more alert today and coherent. Head/eyes/ears/nose/throat: He can hear my spoken words and see near objects. He does not have any white patches in his mouth. Neck: No pain with movement of the neck. Lungs: Clear to auscultation. Cardiovascular: Heart rate is regular. Abdomen: Soft and nontender. Neurologic: The patient is alert. He can move his extremities. There is no tremor. LAB AND X-RAY: There is no new radiographic study. The CBC today shows a white count of 6660, hemoglobin 8.3, and platelet count 134,000. Creatinine is 1.1. GFR is greater than 60. ASSESSMENT AND PLAN: Patient has a Klebsiella urinary tract infection. Plan is to treat the patient for a total of 2 weeks with antibiotics for his urinary tract infection. Dr. Ordoñez is seeing the patient regarding his renal calculi, and the patient does have his own urologist at home. COMORBIDITIES: The patient is elderly. He has renal calculi, and he is a diabetic. cc: MD Khurram Thomas MD
[2019-10-11] MEDS: ROCEPHIN 2 GM in NS 50 ML IV SCH (12:57)
--- NOTE | 2019-10-11 18:12 | PULMONOLOGY PROGRESS NOTE ---
DATE: 10/11/2019 SUBJECTIVE: The patient is awake, alert, and conversant. He is sitting in the bedside chair. He appears less confused than yesterday. OBJECTIVE: Vital Signs: The patient has been afebrile for the last 24 hours. Blood pressure 114/62, heart rate 87, oxygen saturation 98% on 3 L per nasal cannula. HEENT: Pupils are equal and reactive. Oropharynx appears clear. Neck: Supple. Chest: Reveals good air entry bilaterally without wheezing or rhonchi. Cardiac: S1, S2. Abdomen: Soft. Extremities: Reveal trace to 1+ peripheral edema. IMPRESSION: 1. 74-year-old with acute hypoxemic respiratory failure. The patient's oxygen saturation remains elevated and the O2 protocol has been initiated. 2. Chronic obstructive pulmonary disease. 3. Urinary tract infection. 4. Encephalopathy. He appears relatively oriented today. PLAN: 1. Wean oxygen as tolerated. 2. Continue bronchial hygiene. 3. Antibiotics as outlined by Dr. Nimesh Engel. cc: MD Khurram Dewitt MD
[2019-10-11] MEDS: REQUIP PO SCH (20:17)
[2019-10-11] MEDS: XANAX PO SCH (20:17)
[2019-10-11] MEDS: FLOMAX PO SCH (20:18)
[2019-10-12] MEDS: MORPHINE IV PRN ×6 (04:01→22:51)
[2019-10-12] MEDS: HUMALOG SUBQ SCH ×4 (06:22→21:14)
[2019-10-12] MEDS: SODIUM CHLORIDE 0.9% INJ PRN (06:29)
[2019-10-12] MEDS: PRILOSEC PO SCH (06:29)
[2019-10-12] MEDS: SYNTHROID IV SCH (06:29)
[2019-10-12] MEDS: VITAMIN D PO SCH (08:30)
[2019-10-12] MEDS: VITAMIN B-12 PO SCH (08:31)
[2019-10-12] MEDS: LEXAPRO PO SCH (08:31)
[2019-10-12] MEDS: FLOMAX PO SCH (08:32)
[2019-10-12] MEDS: ZYLOPRIM PO SCH (08:33)
[2019-10-12] MEDS: ELIQUIS PO SCH ×2 (08:33→20:43)
[2019-10-12] MEDS: LANTUS INSULIN SUBQ SCH (08:33)
--- NOTE | 2019-10-12 13:34 | PROGRESS NOTE ---
DATE: 10/12/2019 SUBJECTIVE: A 74-year-old white gentleman admitted to the hospital by Dr. Dinh on 10/07/2019 for acute hypoxemic respiratory failure with underlying COPD and he also had a UTI and encephalopathy. The patient was seen by Dr. Adam and Dr. Engel and he is not offering any complaints. PAST MEDICAL HISTORY: Reviewed. PAST SURGICAL HISTORY: Reviewed. MEDICINES: Reviewed. ALLERGIES: Not known. PHYSICAL EXAMINATION: Vital signs: Temperature is 97.8 degrees, pulse 99, blood pressure is 116/58, 96% on 3 L nasal cannula. General: He is slightly tremulous, more oriented. Chest: Bilateral air entry. Heart: Sounds are regular. Abdomen: Belly is soft, nontender. Extremities: No peripheral edema. Neurologic: No obvious deficits noted. INVESTIGATIONS: None reported. Yesterday, white cell count 6.6, hematocrit 27.4, MCV 109, platelet count 134,000. Sodium 137, potassium 4.8, chloride 105, BUN 16, creatinine 1.1, glucose 200. TSH is slightly elevated, T4 1.6. X-ray of the abdomen, bilateral renal stones. Urine cultures grew Klebsiella ESBL-negative. Blood cultures are negative. Chest x-ray, infiltrates are improving. ASSESSMENT AND PLAN: 1. Urinary tract infection, Klebsiella due to kidney stone disease. Under the care of Dr. Ordoñez. Receiving antibiotics, IV ceftriaxone. 2. Benign prostatic hypertrophy, on Flomax 0.4 daily. 3. Hypothyroidism, on Synthroid. 4. Depression, on Lexapro 20 daily. 5. Type 2 diabetes, on insulin Lantus 25 units subcutaneous daily along with sliding scale insulin coverage. 6. Vitamin B12, vitamin D deficiency, on replacement. 7. History of gout, on allopurinol 300 daily. 8. Elevated MCV, continue on B12 replacement. 9. Restless legs syndrome, on Requip 2 mg at bedtime. 10. Chronic anxiety, on Xanax. 11. Acute respiratory failure, hypoxemia is improving. Chest x-ray, seen by Dr. Adam. Out of the bed with Physical Therapy and will repeat the labs in the morning. LEVEL OF DOCUMENTATION: 35 minutes. cc: MD Khurram Song MD
[2019-10-12] MEDS: ROCEPHIN 2 GM in NS 50 ML IV SCH (14:30)
[2019-10-12] MEDS: XANAX PO SCH (20:43)
[2019-10-12] MEDS: REQUIP PO SCH (20:43)
[2019-10-12] MEDS: 1/2 NS 1,000 ML IV SCH (20:43)
[2019-10-12] MEDS: TYLENOL PO PRN (22:51)
[2019-10-13] MEDS: MORPHINE IV PRN ×4 (01:24→20:03)
[2019-10-13] MEDS: PRILOSEC PO SCH (06:01)
[2019-10-13] MEDS: SYNTHROID IV SCH (06:01)
[2019-10-13] MEDS: HUMALOG SUBQ SCH ×4 (06:27→21:08)
[2019-10-13 07:35] LABS: BASO# 0.03 X1000 (0.0-0.2); BASO% 0.5 % (0.0-0.8); EOS# 0.15 X1000 (0.0-0.7); EOS% 2.7 % (0.0-10.0); HEMATOCRIT 25.3 % (42.0-52.0); HEMOGLOBIN 7.6 g/dL (14.0-18.0); IMM GRAN# 0.12 X1000 (0.0-0.04); IMM GRAN% 2.1 % (0.0-0.5); LYMPH# 0.84 X1000 (1.2-3.4); LYMPH% 14.9 % (20.5-51.1); MCH 32.6 PG (27-31); MCV 108.6 FL (81-99); MONO# 0.49 X1000 (0.11-0.59); MONO% 8.7 % (1.7-9.3); MPV 9.4 FL (7.4-10.4); NEUT# 4.01 X1000 (1.4-6.5); NEUT% 71.1 % (42.2-75.2); PLT 142 X1000 (130-400); RBC 2.33 XMIL (4.7-6.1); RDW 16.4 % (11.5-14.5); WBC 5.64 X1000 (4.8-10.8)
[2019-10-13 07:52] LABS: AGAP 13; BUN 13 mg/dL (8-22); CALCIUM 8.6 mg/dL (8.8-10.2); CHLORIDE 102 mmol/L (98-107); COSMO 272; CREATININE 1.1 mg/dL (0.7-1.2); ESTIMATED GFR > 60; GLUCOSE 129 mg/dL (70-104); POTASSIUM 4.1 mmol/L (3.5-5.1); SODIUM 135 mmol/L (136-145); TCO2 20 mmol/L (25-35)
[2019-10-13] MEDS: LANTUS INSULIN SUBQ SCH (08:32)
[2019-10-13] MEDS: LEXAPRO PO SCH (08:35)
[2019-10-13] MEDS: ELIQUIS PO SCH ×2 (08:35→20:03)
[2019-10-13] MEDS: VITAMIN D PO SCH (08:36)
[2019-10-13] MEDS: VITAMIN B-12 PO SCH (08:36)
[2019-10-13] MEDS: ZYLOPRIM PO SCH (08:36)
[2019-10-13] MEDS: FLOMAX PO SCH (08:36)
--- NOTE | 2019-10-13 12:56 | PROGRESS NOTE ---
DATE: 10/13/2019 SUBJECTIVE: The patient is eating popsicles. Family is at bedside. Confusion is better. He denies any symptoms. No shortness of breath. No chest pain. He still has some redness in both legs. OBJECTIVE: Vital Signs: Temp is 98.3, pulse 95, blood pressure is 108/53, saturating 92% on room air. HEENT: Some titubation noted. Chest: Bilateral air entry. Distant heart sounds. Abdomen: Belly is soft, nontender. Extremities: He has redness in both legs, right worse than the left side. LABORATORY DATA: White cell count 5.6, hematocrit 25, MCV 108, platelet count 142,000. Sodium 135, potassium 4.1, chloride 102, BUN 13, creatinine 1.1, glucose 186. ProBNP 400. Free T4 is normal. Urine cultures reported Klebsiella, ESBL negative. Stool occult blood is pending. Clostridium difficile is pending. Blood cultures were negative. ASSESSMENT AND PLAN: 1. Urinary tract infection, Klebsiella due to kidney stones. Seen by Dr. Ordoñez. Currently on intravenous ceftriaxone. 2. Benign prostatic hypertrophy, on Flomax. 3. Hypothyroidism, on Synthroid. 4. Type 2 diabetes, on insulin. 5. B12 deficiency, on replacement therapy. 6. Gout, on allopurinol. 7. Elevated MCV. Continue on B12. 8. Anemia due to chronic disease. Follow up on Hemoccult stools. The patient was seen by Dr. Cardona, giving some erythropoietin injections, and he did receive a unit of blood as per the family, and Dr. Dinh is going to follow up, and continue present treatment without the physical therapy. 9. Cellulitis of both legs. Continue intravenous ceftriaxone. Out of the bed with Physical Therapy. Discussed the plan of care with the family at bedside. LEVEL OF DOCUMENTATION: 25 minutes. cc: MD Khurram Song MD MTDD
[2019-10-13] MEDS: TYLENOL PO PRN ×2 (12:57→23:45)
[2019-10-13] MEDS: ROCEPHIN 2 GM in NS 50 ML IV SCH (12:57)
[2019-10-13] MEDS ORDERED: NORCO-5 PO ONE (13:07)
--- NOTE | 2019-10-13 17:39 | PULMONOLOGY PROGRESS NOTE ---
DATE: 10/13/2019 SUBJECTIVE: The patient is awake, alert, and conversant. He reports he is without specific complaints today. OBJECTIVE: Vital Signs: The patient has been afebrile for the last 24 hours. BP 104/54, heart rate 90, respiratory rate 19, oxygen saturation 98% on 3 L per nasal cannula. HEENT: Pupils are equal and reactive. Oropharynx is clear. Neck: Supple. Chest: Reveals minimal crackles in the lung bases. Cardiac: S1-S2. Abdomen: Soft. Extremities: Reveal 1 to 2+ peripheral edema with erythema. LABORATORIES: White blood count 5.6, hemoglobin 7.6, platelet count 142,000. Sodium 135, potassium 4.1, chloride 102, bicarbonate 20, BUN 13, creatinine 1.1, glucose 129. IMPRESSION: A 74-year-old with: 1. Acute hypoxemic respiratory failure. 2. Chronic obstructive pulmonary disease. 3. Urinary tract infection. 4. Lower extremity cellulitis. 5. Encephalopathy which continues to improve. PLAN: 1. Continue antibiotics per Infectious Disease. 2. Continue bronchial hygiene. 3. Wean oxygen as tolerated. 4. We will obtain chest x-ray today. cc: MD Khurram Dewitt MD
[2019-10-13] MEDS: REQUIP PO SCH (20:03)
[2019-10-13] MEDS: XANAX PO SCH (20:03)
--- NOTE | 2019-10-13 20:10 | Diag Imaging Result Doc PS360 ---
CHEST-1 VIEW - 10/13/2019 INDICATION: resp failure COMPARISON: 10/08/2019 FINDINGS: The lungs are normally expanded and clear. Heart size and mediastinal contours are normal. No pneumothorax or pleural effusion. IMPRESSION: Negative exam. Electronically signed by Lito Larry 10/13/2019 8:07 PM
[2019-10-13] MEDS: NORCO-7.5 PO PRN (21:07)
[2019-10-14] MEDS: NORCO-7.5 PO PRN ×3 (06:06→19:07)
[2019-10-14] MEDS: HUMALOG SUBQ SCH ×4 (06:06→20:12)
[2019-10-14] MEDS: PRILOSEC PO SCH (06:06)
[2019-10-14] MEDS: SYNTHROID IV SCH (06:06)
--- NOTE | 2019-10-14 07:21 | PROGRESS NOTE ---
DATE: 10/14/2019 SUBJECTIVE: No acute events overnight. The patient does describe some lower extremity pain bilaterally. He says he has this occasionally at home and feels like it has gotten worse while in the hospital. Since he has been here, he has been given pain medications with minimal benefit. He denies any fevers or chills. His catheter has been draining well with clear yellow urine, 2.5 L recorded yesterday. OBJECTIVE: Vital Signs: Temperature 97.4 degrees, heart rate 95, blood pressure 131/72, oxygen 96% on room air. General: No acute distress. Resting comfortably in bed. Alert and oriented x3. Respiratory: Good respiratory effort without audible wheezing or rales. Abdomen: Soft, nontender, nondistended. : No suprapubic tenderness. No CVA tenderness. Urethral catheter in place draining clear yellow urine with no evidence of clots or sediment. LABS: Labs from yesterday showed a white blood count of 5.64, hemoglobin of 7.6, hematocrit 25.3. Sodium 135, potassium 4.1, chloride 102, bicarbonate 20. BUN 13, creatinine 1.1, glucose 129. ASSESSMENT AND PLAN: Mr. Merchant is a 74-year-old with type 2 diabetes, peripheral vascular disease, history of pulmonary embolism, history of kidney stones, benign prostatic hyperplasia, diverticulosis and hypothyroidism, who presents in consultation regarding urinary tract infection. The patient's infection seems to be well treated. The white blood count is low and it has remained stable. The patient has indwelling catheter in place draining clear yellow urine. The patient has been minimally ambulatory. We increased his dose of Flomax several days ago. We will plan to remove his catheter today to see if he can urinate. The patient is unable to void, would have to insert the catheter and follow up outpatient. The patient has been seen previously by Dr. Hassan. The patient can follow up with him or follow-up in our office. We will perform PVR after catheter removal to ensure that he is adequately emptying. We will continue monitoring from a urologic standpoint. Please call with questions or concerns. cc: MD Khurram Keating MD MTDD
[2019-10-14] MEDS: VITAMIN B-12 PO SCH (08:52)
[2019-10-14] MEDS: FLOMAX PO SCH (08:52)
[2019-10-14] MEDS: ELIQUIS PO SCH ×2 (08:53→20:08)
[2019-10-14] MEDS: VITAMIN D PO SCH (08:53)
[2019-10-14] MEDS: LEXAPRO PO SCH (08:53)
[2019-10-14] MEDS: ZYLOPRIM PO SCH (08:53)
[2019-10-14] MEDS ORDERED: NS 500 ML IV ONE ×2 (08:57→20:00)
--- NOTE | 2019-10-14 09:18 | PROGRESS NOTE ---
DATE: 10/14/2019 Mr. Merchant says he is feeling better except some leg pains and shortness of breath. His lungs sound clear. Chest x-ray was unremarkable. Repeat lab work showed hemoglobin dropping again from 8.3 to 7.6. White count is normal. I am going to transfuse him 1 unit of packed RBCs today. If he continues to do well, we may discharge him in the morning. cc: Khurram Dinh MD
[2019-10-14] MEDS: LANTUS INSULIN SUBQ SCH (10:31)
[2019-10-14] MEDS: ROCEPHIN 2 GM in NS 50 ML IV SCH (12:00)
--- NOTE | 2019-10-14 14:04 | INFECTIOUS DISEASE PROGRESS NO ---
DATE: 10/14/2019 PRESENT ILLNESS: The patient has a Klebsiella urinary tract infection and the patient also has renal calculi. The patient has told me that he has been having a lot of pain and swelling in his legs and he is concerned about having a blood clot in 1 or both legs. MEDICATIONS: The patient is receiving Rocephin. The patient has had a total of 7 days of treatment with antibiotics for his urinary tract infection. Currently, the patient is on Rocephin. PHYSICAL EXAMINATION: Vital Signs: Temperature is 98 degrees, pulse 102, respirations 16, blood pressure is 126/72. General: This is an ill-appearing elderly male. He is in no acute distress. Head/eyes/ears/nose/throat: He can hear my spoken words and see near objects. He does not have any white coating on his tongue. Neck: No pain with movement. Lungs: Clear to auscultation. Cardiovascular: Heart rate is regular. Abdomen: Soft and nontender. Extremities: Both legs have a pinkish erythematous color to the patient's legs. Both legs are very swollen and they have scaling skin on the legs. Neurologic: The patient is awake. He can move his extremities but he is very weak. LAB AND X-RAY: CBC shows a white count of 5640, hemoglobin 7.6, platelet count 142,000. Creatinine is 1.1. GFR is greater than 60. Stool for Clostridium difficile toxin and antigen is negative. Urine culture is growing Klebsiella. I have ordered a venous ultrasound to be done on the legs to look for clot in the leg. ASSESSMENT AND PLAN: The patient has a Klebsiella urinary tract infection and I plan to treat him for a total of [address] Ordoñez is seeing the patient regarding renal calculi. COMORBIDITIES: The patient is elderly. He has renal calculi. He is a diabetic and he has very swollen legs due to edema. cc: MD Khurram Thomas MD
[2019-10-14] MEDS: XANAX PO SCH (20:07)
[2019-10-14] MEDS: REQUIP PO SCH (20:08)
[2019-10-15] MEDS: NORCO-7.5 PO PRN ×2 (04:07→10:45)
[2019-10-15] MEDS: SYNTHROID IV SCH (06:18)
[2019-10-15] MEDS: PRILOSEC PO SCH (06:18)
[2019-10-15] MEDS: HUMALOG SUBQ SCH ×2 (06:18→10:46)
[2019-10-15] MEDS: SODIUM CHLORIDE 0.9% INJ PRN (06:19)
[2019-10-15 07:24] LABS: BASO# 0.03 X1000 (0.0-0.2); BASO% 0.5 % (0.0-0.8); EOS# 0.15 X1000 (0.0-0.7); EOS% 2.7 % (0.0-10.0); HEMOGLOBIN 8.4 g/dL (14.0-18.0); IMM GRAN# 0.06 X1000 (0.0-0.04); IMM GRAN% 1.1 % (0.0-0.5); LYMPH% 17.9 % (20.5-51.1); MCH 31.7 PG (27-31); MCV 105.7 FL (81-99); MONO# 0.43 X1000 (0.11-0.59); MONO% 7.7 % (1.7-9.3); NEUT# 3.91 X1000 (1.4-6.5); NEUT% 70.1 % (42.2-75.2); PLT 162 X1000 (130-400); RBC 2.65 XMIL (4.7-6.1); RDW 17.5 % (11.5-14.5); WBC 5.58 X1000 (4.8-10.8)
[2019-10-15 07:27] VITALS: BP 119/63
[2019-10-15] MEDS: VITAMIN D PO SCH (08:19)
[2019-10-15] MEDS: VITAMIN B-12 PO SCH (08:19)
[2019-10-15] MEDS: ELIQUIS PO SCH (08:19)
[2019-10-15] MEDS: FLOMAX PO SCH (08:20)
[2019-10-15] MEDS: LEXAPRO PO SCH (08:20)
[2019-10-15] MEDS: ZYLOPRIM PO SCH (08:20)
[2019-10-15] MEDS: LANTUS INSULIN SUBQ SCH (08:20)
--- NOTE | 2019-10-15 09:55 | PROGRESS NOTE ---
DATE: 10/15/2019 SUBJECTIVE: Mr. Merchant is feeling better. His mouth looks normal. Tongue looks normal. He is white count is normal. Hemoglobin is up to 8.4 after 1 unit of packed RBC transfusion yesterday. We are giving him a prescription of bedside commode and we will discharge him today. cc: Khurram Dinh MD
--- NOTE | 2019-10-15 17:41 | DISCHARGE SUMMARY ---
ADMISSION DATE: 10/07/2019 DISCHARGE DATE: 10/15/2019 HISTORY: Mr. Merchant who is a 74-year-old white gentleman was admitted with sepsis and severe hypotension with hemodynamic circulatory failure. He was admitted to ICU. STUDIES: The chest x-ray revealed nonspecific findings of cardiomegaly with mild pulmonary vascular congestion and stable patchy atelectasis. EKG revealed sinus tachycardia, cannot rule out anterior infarct, age undetermined. Renal ultrasound revealed the presence of apparent 1 to 1.5 cm stone in the right kidney, questionable stone in the left kidney. LABORATORIES: The last CBC shows hemoglobin 8.4, hematocrit 28, white count was 5.58. Glucose was 195. Initial CBC when he came in revealed white count of 17.49, hemoglobin was 9.6. INR was 1.79. Blood gases had revealed pH 7.433, pCO2 was 31.3, pO2 was 96. Blood sugars were done. Urinalysis had revealed too numerous RBCs, 20 to 40 WBCs, 1+ bacteria. Microbiology revealed the presence of Klebsiella pneumoniae. Urine culture and blood cultures were negative. C difficile was negative for toxin and antigen both. COURSE IN THE HOSPITAL: Mr. Merchant was hospitalized. He was admitted to ICU and given IV cefepime, Later on ceftriaxone was given. ID consult was made with Dr. Engel. Dr. Adam also saw him on account of hypoxemic respiratory failure. Dr. Ordoñez was consulted for Urology. He was kept on Levophed and IV antibiotics. He improved and moved out of ICU after about 4 days of stay in ICU. Then he became anemic and was prescribed 1 unit of packed RBCs. He is feeling better. He had some pain in his mouth. I did not see any pathology except for possible dental pathology. He was advised to see Dr. Ruth, his own dentist. I gave him a prescription of Lantus insulin 25 units as well as Humalog sliding scale, and he will continue his oral medications also. I will see him in the office in about 15 days. FINAL DIAGNOSES: The patient had: 1. Sepsis secondary from severe urinary tract infection. 2. Anemia. 3. Chronic venous stasis with history of deep venous thrombosis in the left leg. 4. History of pulmonary embolism, 5. Hypoxic respiratory failure. cc: Khurram Dinh MD
--- NOTE | 2019-10-16 10:06 | Extremity Venous Study ---
PROCEDURE NAME: Venous U/S Bilateral Legs - 10/14/2019 STUDY PERFORMED: This is the bilateral lower extremity venous duplex and color flow imaging study using the GE vivid E9 ultrasound System with a 9 L-D transducer. REFERRING PHYSICIAN: Dr. Engel. IDENTIFYING DATA: A 74-year-old male. 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 INDICATIONS: The patient has a history of deep venous thrombosis. She has edema and discolorization of both lower extremities, rule out deep venous thrombosis. FINDINGS: The right common femoral vein and its branches, deep and superficial femoral veins were satisfactorily imaged. They had flow through them and were compressible. Right popliteal vein and the deep veins below the right knee were all compressible and had flow through them. The superficial veins of the right lower extremity were compressible throughout their length. The left common femoral vein and its branches, deep and superficial femoral veins were satisfactorily imaged. 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 There is flow through them. There is no evidence of acute thrombus in this area. The left popliteal vein and the deep veins below the left knee were all compressible and had flow through them. The superficial veins of the left lower extremity were compressible throughout their length. 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 There is no evidence of acute deep or superficial venous thrombosis of the bilateral lower extremities. cc: MD Nimesh Turcios MD Amit V. Vora, MD
== END 2019-10-15 14:17 | disposition home health service (06) | DRG 871 ==
LOC: ED 02:47 → ICU 06:41 → SUATTDRO 06:41 → 3N 10-08 21:21
PROVIDERS: ADMIT Internal Medicine; ATTEND Internal Medicine